=== PATIENT | female | born 1950 | race Caucasian/White ===

== ENCOUNTER 2018-07-06 03:44 | Outpatient (CLI) | payer MEDICARE, BC, SELFPAY ==
[2018-07-06 10:50] LABS: Cholesterol 164 mg/dL (50-200); HDL Cholesterol 62 mg/dL (40-60); LDL CHOLESTEROL 91 mg/dL (<100); Triglyceride 79 mg/dL (30-150)
[2018-07-06 12:15] LABS: FREE T4 0.88 ng/dL (0.76-1.46); TSH 0.58 uIU/mL (0.358-3.74)
[2018-07-08 05:26] LABS: Hemoglobin A1C 6.7 % (4.5-6.2)
== END 2018-07-06 04:04 ==
PROVIDERS: PCP Nurse Practitioner Family; Visit Provider Nurse Practitioner Family
DX: E03.9 Hypothyroidism, unspecified (principal); E11.9 Type 2 diabetes mellitus without complications
CPT/HCPCS: 36415; 80061; 83721; 83036; 84439; 84443

== ENCOUNTER 2019-01-08 06:55 | Outpatient (CLI) | payer MEDICARE, BC, SELFPAY ==
[2019-01-08 09:12] LABS: Hemoglobin A1C 6.9 % (4.5-6.2)
[2019-01-08 09:19] LABS: ALT 28 U/L (12-78); AST 21 U/L (15-37); Albumin 3.7 g/dL (3.4-5.0); Alkaline Phosphatase 81 U/L (46-116); Anion Gap 7.9 mmol/L (3-11); BUN 23 mg/dL (7-18); Bilirubin, Total 0.2 mg/dL (0.2-1.0); CO2 30.1 mmol/L (21.0-32.0); CREATININE 1.24 mg/dL (0.55-1.02); Calcium 8.7 mg/dL (8.5-10.1); Chloride 103 mmol/L (98-107); Cholesterol 189 mg/dL (50-200); Estimated GFR 43.15 (mL/min/1.73m2); Glucose 127 mg/dL (70-100); HDL Cholesterol 56 mg/dL (40-60); LDL CHOLESTEROL 110 mg/dL (<100); Potassium 4.8 mmol/L (3.5-5.1); Sodium 141 mmol/L (136-145); TSH 1.31 uIU/mL (0.358-3.74); Total Protein 6.8 g/dL (6.4-8.2); Triglyceride 103 mg/dL (30-150)
== END 2019-01-08 07:15 ==
PROVIDERS: PCP Nurse Practitioner Family; Visit Provider Nurse Practitioner Family
DX: E11.9 Type 2 diabetes mellitus without complications (principal); E03.9 Hypothyroidism, unspecified; E78.5 Hyperlipidemia, unspecified
CPT/HCPCS: 36415; 80053; 80061; 83721; 83036; 84439; 84443

== ENCOUNTER 2019-01-21 00:30 | Outpatient (CLI) | payer MEDICARE, BC, SELFPAY ==
--- NOTE | 2019-01-21 14:03 | DI.RAD_ITS ---
SYMPTOMS/DIAGNOSIS: POSTMENOPAUSAL, Z78.0 DEXA SCAN: DEXA scan was performed according to the usual protocol. Findings for lumbar spine scanning are a T score of -0.7, previous examination of August 2004 showed a lumbar T score of -0.8. Left hip scanning shows a T score of -0.6, previous examination of 2003 showed left hip T score of -0.4. Left femoral neck T score is -0.9 today. Left forearm scanning shows a T score of -1.1. CONCLUSION: Findings consistent with osteopenia according to the WHO criteria. The lateral vertebral scanogram shows no evidence of a vertebral compression fracture.
--- NOTE | 2019-01-21 15:15 | DI.MAMMO_ITS ---
SYMPTOM/DIAGNOSIS: SCREENING, Z12.31 MAMMOGRAMS: Mammograms were interpreted according to the usual protocol including computer analysis with CAD system, tomosynthesis and C view imaging. The breasts are of moderate density with fairly symmetrical distribution of fibroglandular tissue. No dominant mass or clumped microcalcification is identified in either breast. The current examination is compared with the previous examinations including 10/2016 and there has been no interval change in appearance in comparison with the previous studies. CONCLUSION: No specific evidence of malignancy at this time. Routine screening examinations are suggested at yearly intervals in this age group according to the ACS/ACR guidelines. Category 1. Breast density, Category B. MQSA ASSESSMENT OF FINDINGS: Negative. Category 1. Patient will receive a letter notifying them of these results. BI-RADS category B. There are scattered areas of fibroglandular density.
== END 2019-01-21 00:50 ==
PROVIDERS: PCP Nurse Practitioner Family; Visit Provider Nurse Practitioner Family
DX: Z12.31 Encounter for screening mammogram for malignant neoplasm of breast (principal); M85.88 Other specified disorders of bone density and structure, other site; Z78.0 Asymptomatic menopausal state
CPT/HCPCS: 77063; 77067; 77080

== ENCOUNTER 2019-07-05 18:42 | Emergency (ER) | payer MEDICARE, BC, SELFPAY ==
[2019-07-05 18:47] VITALS: BP 137/61; PULSE 65; RESP 16; TEMP 36.7; O2SAT 99
[2019-07-05 19:06] LABS: Bilirubin Negative (Negative); Blood Negative (Negative); Clarity Sl Cloudy (Clear); Glucose Negative (Negative); Ketones Trace mg/dL (Negative); Leukocyte Esterase Large (Negative); Nitrite Negative (Negative); Urobilinogen 0.2 EU/dL (Up TO 0.2)
[2019-07-05 19:15] LABS: Epithelial Cells Many HPF (Negative); WBC 20-50 HPF (0-5)
[2019-07-05 19:16] LABS: Bacteria Moderate HPF (Negative); C & S Indicated? Yes; Casts 10-20 Hyaline LPF (Negative); Crystals Negative HPF (Negative); Mucus Negative (Negative); Other Cells Rare Transitional (Negative)
--- NOTE | 2019-07-05 19:30 | DI.CT_ITS ---
SYMPTOM/DIAGNOSIS: ABD BLOATING, LLQ AND ABD PAIN ABDOMEN AND PELVIC CT: CT examination of the abdomen and pelvis was performed with intravenous infusion of 100 cc's of Omnipaque 350. Images obtained through the lung bases are unremarkable. Note is made of hepatomegaly and hepatic steatosis with no focal hepatic lesion seen. Spleen is unremarkable in appearance. Pancreas, gallbladder and bile ducts are unremarkable in appearance. Adrenals and kidneys are unremarkable. Abdominal aorta is of normal diameter and no major vascular abnormality is seen. No significant abdominal wall hernia is seen. No significant abdominal or pelvic adenopathy. Cecum appears to lie in the abdominal midline. Appendix is unremarkable in appearance. CARDIOVASCULAR SURGICAL TECH structures are unremarkable for age. There is wall thickening and pericolonic fat edema in the mid sigmoid colon highly suggestive of acute diverticulitis. No evidence of abscess or perforation. CONCLUSION: Findings consistent with sigmoid diverticulitis. No evidence of abscess or perforation.
[2019-07-05 19:46] LABS: Abs Immature Grans 0.02 k/cumm (0.0-0.09); Absolute Basophil Count 0.04 k/cumm (0.0-0.2); Absolute Eosinophil Count 0.37 k/cumm (0.0-0.7); Absolute Lymphocyte Count 1.72 k/cumm (1.2-3.4); Absolute Monocyte Count 0.88 k/cumm (0.11-0.7); Absolute Neutrophil Count 6.26 k/cumm (1.2-6.7); Basophils % 0.4; HCT 35.8 % (36.0-46.0); Immature Grans % 0.2; Lymphocytes % 18.5; Mean Corp. HGB Concentration 33.5 g/dL (32.0-36.0); Mean Corpuscular Hemoglobin 29.9 pg (27.0-33.0); Mean Corpuscular Volume 89.3 fL (80-95); Mean Platelet Volume 9.4 fL (8.0-11.0); Monocytes % 9.5; Neutrophils % 67.4; Platelet Count 230 x1000/uL (130-400); RBC 4.01 m/cumm (4.00-5.20); RBC Distribution Width 13.3 % (11.7-14.6); White Blood Cell Count 9.29 k/cumm (4.4-10.8)
[2019-07-05 19:57] LABS: ALT 28 U/L (14-59); AST 20 U/L (15-37); Albumin 3.7 g/dL (3.4-5.0); Alkaline Phosphatase 78 U/L (46-116); Anion Gap 8.3 mmol/L (3-11); BUN 20 mg/dL (7-18); Bilirubin, Total 0.3 mg/dL (0.2-1.0); CO2 28.7 mmol/L (21.0-32.0); CREATININE 1.38 mg/dL (0.55-1.02); Calcium 8.5 mg/dL (8.5-10.1); Chloride 102 mmol/L (98-107); Estimated GFR 38.14 (mL/min/1.73m2); Glucose 141 mg/dL (70-100); Lipase 232 U/L (73-393); Potassium 4.2 mmol/L (3.5-5.1); Sodium 139 mmol/L (136-145); Total Protein 7.6 g/dL (6.4-8.2)
[2019-07-05] MEDS: Omnipaque 350 MG/ML 100 ML BTL IJ (20:20)
[2019-07-05] MEDS: Normal Saline 1,000 ML 1000 ML IV (20:37)
--- NOTE | 2019-07-05 20:45 | ED.GENADUL_ITS ---
Discharge Plan Disposition Patient Disposition: HOME Condition: Stable Discharge Details Chief Complaint: Urinary Clinical Impression: Acute diverticulitis, Acute UTI Primary Care Provider: Adeline Lee ED Provider: Missy Gordillo Home Meds and New Rx's Prescriptions: New ciprofloxacin HCl [Cipro] 500 mg tablet 500 mg PO BID Qty: 14 RF: 0 metronidazole 500 mg tablet 500 mg PO TID Qty: 21 RF: 0 Continued trazodone 50 mg tablet 50 mg PO QHS Qty: 90 RF: 4 levothyroxine 88 mcg tablet 88 mcg PO DAILY Qty: 90 RF: 4 simvastatin 20 mg tablet 20 mg PO QPM Qty: 90 RF: 4 metformin 500 mg tablet 500 mg PO BID Qty: 180 RF: 4 lisinopril 20 mg tablet 20 mg PO DAILY Qty: 90 RF: 4 Prevnar 13 (PF) 0.5 mL syringe 0.5 ml IM ONCE Qty: 0.5 RF: 0 varicella-zoster gE-AS01B (PF) 50 mcg/0.5 mL suspension for reconstitution 0.5 ml IM ONCE Qty: 1 RF: 0 vitamin B complex 1 EACH capsule 1 ea PO twice weekly RF: 0 Restasis 1 EACH dropperette 1 ea Ophthalmic DAILY RF: 0 (DME) OneTouch Ultra Test 1 EACH strip 1 ea Miscellaneous DAILY Qty: 100 RF: 4 cetirizine 10 mg tablet 10 mg PO DAILY Qty: 90 RF: 4 famotidine 20 mg tablet 20 mg PO BID PRN (Reason: GERD) Qty: 180 RF: 4 ammonium lactate 12 % cream 1 applic TP BID Qty: 385 RF: 3 aspirin [Aspir-81] 81 MG tablet,delayed release (DR/EC) 81 mg PO DAILY RF: 0 Discharge Instructions Instructions: Diverticulitis (ED), Urinary Tract Infection in Women (ED), Diverticulitis Diet (ED) Additional Instructions: Clear liquid diet for the next 2 to 3 days. Push fluids by mouth. Be sure to stay well-hydrated. Use antibiotic as prescribed. For any joint pain or tendon pain which developed while taking these antibiotics please discontinue antibiotics and call your primary care doctor. Follow-up with your primary care doctor early next week for reevaluation. For any alarming symptoms, increase in abdominal pain, fevers worsening or alarming symptoms have immediate reevaluation in the emergency room as discussed Medical Decision Making Patient presents initially for concern of possible UTI as she has had 3 days of back pain bilaterally associated mild abdominal bloating and lower abdominal pressure. On exam patient is having notable left lower quadrant tenderness with palpation. Patient's initial urine dip does have mild leukocyte esterase. P atient's exam is not consistent with urinary tract infection therefore we discussed CAT scan evaluation which patient consents to. On CT patient does have acute sigmoid diverticulitis without any associated complication. No notable white blood cell count elevation today. I do feel this patient is appropriate for outpatient management of diverticulitis. Will treat with Cipro Flagyl which will also cover her urine concurrently. Urine culture pending. Patient encouraged clear liquid diet for 2 to 3 days in conjunction with pushing fluids by mouth and antibiotic treatment. Initial dose of antibiotics provided in the emergency room. Patient did receive IV fluid in the ER. Patient encouraged prompt follow-up with primary care doctor as an outpatient the next few days for reevaluation and return for any alarming symptoms or worsening. Precautions provided regarding complications. HPI General Date/Time Provider Initiated Documentation: 07/05/19 19:21 . HPI Narrative: Patient presents for complaints of 3 days of lower back pain bilaterally in the lower back associated with mild abdominal pressure. Patient reports mild abdominal bloating for the last 2 days mildly improved today. Patient denies any diarrhea, nausea, vomiting. Patient reports mild suprapubic pressure. Patient denies urinary urgency, frequency or dysuria or. Patient does report a mild concern of UTI she does with a history of UTI the past however her clinical presentation with UTI historically was associated with dysuria and urgency which she did denies at this time. Patient denies fever, chills. Patient has mild decrease in appetite but has had no difficulty tolerating p.o. intake. Does report a history of diverticulosis without any history of flare of diverticulitis. Patient reports no cough or recent URI. Denies difficulty breathing with shortness of breath or wheezing. No chest pain. No dizziness or weakness. Related Data Home Medications Medication Instructions Recorded Confirmed vitamin B complex 1 ea PO twice weekly 02/25/13 07/05/19 aspirin [Aspir-81] 81 mg PO DAILY 03/02/14 07/05/19 Restasis 1 ea OPHTHALMIC DAILY script 02/03/16 07/05/19 [employer] Ultra Test #100 strip 10/10/17 01/15/19 cetirizine 10 mg tablet 10 mg PO DAILY #90 tab 09/04/18 07/05/19 famotidine 20 mg tablet 20 mg PO BID PRN #180 tab 09/20/18 07/05/19 levothyroxine 88 mcg tablet 88 mcg PO DAILY #90 tab 01/15/19 07/05/19 lisinopril 20 mg tablet 20 mg PO DAILY #90 tab 01/15/19 07/05/19 metformin 500 mg tablet 500 mg PO BID #180 tab 01/15/19 07/05/19 pneumoc 13-mack conj-dip cr(PF) 0.5 0.5 ml IM ONCE #0.5 ml 01/15/19 07/05/19 mL IM syringe simvastatin 20 mg tablet 20 mg PO QPM #90 tab 01/15/19 07/05/19 trazodone 50 mg tablet 50 mg PO QHS #90 tab 01/15/19 07/05/19 varicella-zoster gE-AS01B (PF) 50 0.5 ml IM ONCE #1 each 01/15/19 07/05/19 mcg/0.5 mL IM susp, kit ammonium lactate 12 % topical cream 1 applic TP BID #385 gm 01/22/19 07/05/19 ciprofloxacin HCl [Cipro] 500 mg PO BID #14 tab 07/05/19 metronidazole 500 mg PO TID #21 tab 07/05/19 Previous Rx's Medication Instructions Recorded OneTouch Ultra Test #100 strip 10/10/17 cetirizine 10 mg tablet 10 mg PO DAILY #90 tab 09/04/18 famotidine 20 mg tablet 20 mg PO BID PRN #180 tab 09/20/18 levothyroxine 88 mcg tablet 88 mcg PO DAILY #90 tab 01/15/19 lisinopril 20 mg tablet 20 mg PO DAILY #90 tab 01/15/19 metformin 500 mg tablet 500 mg PO BID #180 tab 01/15/19 pneumoc 13-mack conj-dip cr(PF) 0.5 0.5 ml IM ONCE #0.5 ml 01/15/19 mL IM syringe simvastatin 20 mg tablet 20 mg PO QPM #90 tab 01/15/19 trazodone 50 mg tablet 50 mg PO QHS #90 tab 01/15/19 varicella-zoster gE-AS01B (PF) 50 0.5 ml IM ONCE #1 each 01/15/19 mcg/0.5 mL IM susp, kit ammonium lactate 12 % topical cream 1 applic TP BID #385 gm 01/22/19 ciprofloxacin HCl [Cipro] 500 mg PO BID #14 tab 07/05/19 metronidazole 500 mg PO TID #21 tab 07/05/19 Allergies Allergy/AdvReac Type Severity Reaction Status Date / Time amoxicillin Allergy Severe Hives Unverified 01/15/19 10:07 blueberry Allergy Intermediate SWELLING Unverified 01/15/19 10:07 General Stated Complaint: Urinary SIRIA: 4 Review of Systems Review of Systems CONSTITUTIONAL: The patient denies fevers, chills. EYES: Denies vision changes, blurry vision, or eye pain. ENT: Denies hearing changes, tinnitus, vertigo, sore throat. CARDIAC: Denies chest pain, SOB. RESPIRATORY: Denies cough, sputum. Denies difficulty breathing. GASTROINTESTINAL: Denies abdominal pain, changes in bowel, vomiting or nausea. Mild bloating. GENITOURINARY: Denies dysuria, or frequency of urination. MUSCULOSKELETAL: Denies Joint pain, gait changes. NEUROLOGIC: Denies headaches, Denies focal weakness. Denies numbness. INTEGUMENT: Denies rashes. PSYCHIATRIC: Denies behavior changes. Denies anxiety or depression. ENDOCRINOLOGY: Denies fatigue. PSYCHIATRY: Denies depression, agitation or anxiety [facility] [place] Medical History (Updated 02/04/19 @ 21:16 by Adeline Lee NP) Carpal tunnel syndrome, bilateral (Inactive) CKD (chronic kidney disease) (Chronic) Depressive disorder (Resolved) Diabetic retinopathy (Chronic ~08/26/18) Essential hypertension (Chronic 12/02/13) Hyperlipidemia (Chronic 06/24/12) Hypothyroidism (Chronic 06/24/12) Insomnia (Chronic) Osteopenia (Chronic ~12/2018) Sigmoid diverticulosis (Inactive) Type 2 diabetes mellitus (Chronic) Surgical History (Updated 03/19/19 @ 15:30 by Adeline Lee NP) History of carpal tunnel surgery of left wrist (Inactive 02/11/19) History of carpal tunnel surgery of right wrist (Inactive 12/31/18) S/P trigger finger release (Inactive 12/31/18) Of right middle and index finger 12/31/18 Of left middle and index finger 02/11/19 Social History (Updated 01/15/19 @ 14:56 by Meño Vargas) Smoking/Tobacco Use Status: Never Second Hand Exposure: Yes Alcohol Intake: current Alcohol Intake frequency: 0-2 drinks per day Alcohol type: wine Drug use: Never Substance use type: does not use Household members: significant other Housing: house Communication Needs: None Pets and animals: Yes Pets and animals: dog(s) Sexually active: No Current gender identity: decline to answer What is your relationship status?: How often do you talk on the phone with friends or family?: decline to answer How often do you get together with friends or relatives?: decline to answer How often do you attend mormonism or mandaen services?: decline to answer Do you belong to any clubs or organized social groups?: decline to answer Panel score (0-1 are the most socially isolated patients): 1 What type of physical activity do you participate in: decline to answer Duration: < 15 minutes/day Frequency: daily Holly/Hoahaoism: Yazdanism Special holly needs: No Seatbelt use: always Do you feel safe at home: Yes Do you feel safe in your relationship?: Yes Female Reproductive History Menstrual Menopause type: natural History History 2 Para 2 Hx # Term Pregnancies Multiple births Hx # Pregnancies Ectopic pregnancies AB induced Hx Number of Living Children 2 AB spontaneous Exam Narrative Exam Narrative: CONST: Healthy appearing patient, in no acute distress. Well hydrated. Alert and alert. HENMT: Head nomocephalic, normal to inspection. Atraumatic. Hearing grossly normal. EYES: General normal appearance. Alignment normal. Eyelids normal. Conjunctiva normal. NECK: Normal visual inspection. FROM. Trachea midline. No Midline tenderness. CHEST: Normal insepection of the chest. RESP: Normal respiratory effort. Speaking full sentences. No cough. No audible wheezing. No retractions. CARDIO: No JVD. Abdomen: Patient with mild left lower quadrant tenderness with palpation. No rebound or guarding. Bowel sounds present in all 4 quadrants. MUSCULOSKELETAL: Normal Gait. FROM of all extremities. No bony pain with palpation to lower back. No CVA tenderness. SKIN: Normal. Dry. No rashes. NEURO: Alert and awake. Speech clear. PSYCH: Normal affect. Cooperative. Course Vital Signs Temperature 36.7 C 07/05/19 18:47 Pulse 65 07/05/19 18:47 Respiratory Rate 16 07/05/19 18:47 Blood Pressure 137/61 07/05/19 18:47 Pulse Oximetry 99 07/05/19 18:47 Temperature 36.7 C 07/05/19 18:47 Temperature Source Temporal Artery Scan 07/05/19 18:47 Pulse 65 07/05/19 18:47 Respiratory Rate 16 07/05/19 18:47 Respiratory Effort 07/05/19 18:47 Blood Pressure 137/61 07/05/19 18:47 Pulse Oximetry 99 07/05/19 18:47 Pain Level 2 07/05/19 18:54 Lab/Test Results Lab/Test Results: 07/05/19 19:00 Urine - Reflex from Ua Urine Culture - Pending Laboratory Tests Range/Units 07/05/19 07/05/19 07/05/19 19:00 19:35 19:35 WBC (4.4-10.8) k/cumm 9.29 RBC (4.00-5.20) m/cumm 4.01 Hgb (12.0-15.5) g/dL 12.0 Hct (36.0-46.0) % 35.8 L MCV (80-95) fL 89.3 MCH (27.0-33.0) pg 29.9 MCHC (32.0-36.0) g/dL 33.5 RDW (11.7-14.6) % 13.3 Plt Count (130-400) x1000/uL 230 MPV (8.0-11.0) fL 9.4 Immature Gran % 0.2 Neutrophils % 67.4 Lymphocytes % 18.5 Monocytes % 9.5 Eosinophils % 4.0 Basophils % 0.4 Absolute Neutrophils (1.2-6.7) k/cumm 6.26 Absolute Lymphocytes (1.2-3.4) k/cumm 1.72 Absolute Monocytes (0.11-0.7) k/cumm 0.88 H Absolute Eosinophils (0.0-0.7) k/cumm 0.37 Absolute Basophils (0.0-0.2) k/cumm 0.04 Sodium (136-145) mmol/L 139 Potassium (3.5-5.1) mmol/L 4.2 Chloride (98-107) mmol/L 102 Carbon Dioxide (21.0-32.0) mmol/L 28.7 Anion Gap (3-11) mmol/L 8.3 BUN (7-18) mg/dL 20 H Creatinine (0.55-1.02) mg/dL 1.38 H Estimated GFR/1.73 m2 (mL/min/1.73m2) 38.14 Glucose (70-100) mg/dL 141 H Calcium (8.5-10.1) mg/dL 8.5 Total Bilirubin (0.2-1.0) mg/dL 0.3 AST (15-37) U/L 20 ALT (14-59) U/L 28 Alkaline Phosphatase (46-116) U/L 78 Total Protein (6.4-8.2) g/dL 7.6 Albumin (3.4-5.0) g/dL 3.7 Lipase (73-393) U/L 232 Urine Color (Yellow) Yellow Urine Clarity (Clear) Sl cloudy Urine pH (5-8) 6.0 Ur Specific [place] (1.005-1.025) 1.020 Urine Protein (Negative) mg/dL Trace H Urine Ketones (Negative) mg/dL Trace H Urine Blood (Negative) Negative Urine Nitrite (Negative) Negative Urine Bilirubin (Negative) Negative Urine Urobilinogen (Up TO 0.2) EU/dL 0.2 Ur Leukocyte Esterase (Negative) Large H Urine RBC (0-2) 3-5 H Urine WBC (0-5) HPF 20-50 Ur Epithelial Cells (Negative) HPF Many Urine Crystals (Negative) HPF Negative Urine Bacteria (Negative) HPF Moderate Urine Casts (Negative) LPF 10-20 hyaline Urine Mucus (Negative) Negative Urine Other (Negative) Rare transitional Ur Culture Indicated? Yes Urine Glucose (Negative) mg/dL Negative
--- NOTE | 2019-07-05 20:58 | DI.VRAD_ITS ---
EXAM: CT Abdomen and Pelvis With Contrast EXAM DATE/TIME: 07/05/2019 8:06 PM CLINICAL HISTORY: 68 years old, female; Abdominal pain; Localized; Left lower quadrant (llq); Patient HX: Abd bloating, llq pain, back pain TECHNIQUE: Imaging protocol: Computed tomography of the abdomen and pelvis with intravenous contrast. COMPARISON: No relevant prior studies available. FINDINGS: Lungs: Subsegmental atelectasis/scarring anterior right lung base. Liver: There is a diffuse decrease in hepatic parenchymal density, consistent with moderate fatty infiltration.No mass. Gallbladder and bile ducts: Normal. No calcified stones. No ductal dilation. Pancreas: Normal. No ductal dilation. Spleen: Normal. No splenomegaly. Adrenals: Normal. No mass. Kidneys and ureters: There is mild perinephric stranding. Simple cyst right kidney. No hydronephrosis. Stomach and bowel: There is no evidence of intestinal perforation or obstruction. Colonic diverticula. Pericolonic stranding of fat about distal sigmoid colon, series 4, image 77. Appendix: No evidence of appendicitis. Intraperitoneal space: Unremarkable. No free air. No significant fluid collection. Vasculature: Unremarkable. No abdominal aortic aneurysm. Lymph nodes: Unremarkable. No enlarged lymph nodes. Bladder: Unremarkable as visualized. Reproductive: Unremarkable as visualized. Bones/joints: Mild convex-right scoliosis of thoracolumbar spine. The spine demonstrates moderate degenerative changes at multiple levels. Soft tissues: Unremarkable. IMPRESSION: 1. Acute sigmoid colonic diverticulitis. 2. Perinephric fat stranding which could have multiple possible etiologies. Dictated and Authenticated by: Miguel Angel Carter MD. Ordering:DIMAS Louis MD
[2019-07-05] MEDS: metroNIDAZOLE 500 MG TAB PO (21:34)
[2019-07-05] MEDS: Ciprofloxacin 500 MG TAB PO (21:35)
== END 2019-07-05 21:45 | disposition home or self-care (01) ==
PROVIDERS: Emergency Provider Physician Assistant; PCP Nurse Practitioner Family
DX: K57.30 Diverticulosis of large intestine without perforation or abscess without bleeding (principal); N39.0 Urinary tract infection, site not specified
CPT/HCPCS: 36415; 80053; 83690; 96360; 99285; 74177; 81003; 81015; 85025; 87086; 99284; J3490

== ENCOUNTER 2019-07-17 10:08 | Outpatient (CLI) | payer MEDICARE, BC, SELFPAY ==
[2019-07-17 13:43] LABS: Hemoglobin A1C 6.8 % (4.5-6.2)
[2019-07-17 13:47] LABS: Anion Gap 8.4 mmol/L (3-11); BUN 22 mg/dL (7-18); CO2 26.6 mmol/L (21.0-32.0); COMMENT (LAB VIEW ONLY) 91.16 mg/dL; CREATININE 1.13 mg/dL (0.55-1.02); Calcium 8.5 mg/dL (8.5-10.1); Chloride 105 mmol/L (98-107); Estimated GFR 48.03 (mL/min/1.73m2); Glucose 76 mg/dL (70-100); Microalb ug/mg Crea 5.7 ug/mg Cr; Potassium 4.9 mmol/L (3.5-5.1); Sodium 140 mmol/L (136-145)
[2019-07-17 13:55] LABS: Bilirubin Negative (Negative); Blood Negative (Negative); Clarity Sl Cloudy (Clear); Glucose Negative (Negative); Ketones Negative (Negative); Leukocyte Esterase Small (Negative); Nitrite Negative (Negative); Urobilinogen 0.2 EU/dL (Up TO 0.2); pH 5.5 (5-8)
[2019-07-17 14:53] LABS: Epithelial Cells Few HPF (Negative); RBC 0-2 (0-2); WBC 0-2 HPF (0-5)
[2019-07-17 14:54] LABS: Bacteria Few HPF (Negative); C & S Indicated? Yes; Casts 0-2 Coarse Granular LPF (Negative); Crystals Moderate Amorphous HPF (Negative); Mucus Negative (Negative); Other Cells Rare Renal (Negative)
== END 2019-07-17 10:28 ==
PROVIDERS: PCP Nurse Practitioner Family; Visit Provider Nurse Practitioner Family
DX: N18.9 Chronic kidney disease, unspecified (principal); E11.9 Type 2 diabetes mellitus without complications; R82.90 Unspecified abnormal findings in urine
CPT/HCPCS: 36415; 80048; 81003; 81015; 82043; 82570; 83036; 87086

== ENCOUNTER 2020-01-05 01:46 | Outpatient (CLI) | payer MEDICARE, BC, SELFPAY ==
[2020-01-05 07:34] LABS: Hemoglobin A1C 6.6 % (3.8-5.6)
[2020-01-05 08:39] LABS: ALT 29 U/L (14-59); AST 24 U/L (15-37); Albumin 3.6 g/dL (3.4-5.0); Alkaline Phosphatase 77 U/L (46-116); Anion Gap 7.2 mmol/L (3-11); BUN 18 mg/dL (7-18); Bilirubin, Total 0.2 mg/dL (0.2-1.0); CO2 30.8 mmol/L (21.0-32.0); CREATININE 1.06 mg/dL (0.55-1.02); Calcium 8.6 mg/dL (8.5-10.1); Calculated LDL 101 mg/dL (<100); Chloride 103 mmol/L (98-107); Cholesterol 180 mg/dL (<200); Estimated GFR 51.55 (mL/min/1.73m2); Glucose 114 mg/dL (74-106); HDL Cholesterol 59 mg/dL (40-60); Potassium 4.4 mmol/L (3.5-5.1); Sodium 141 mmol/L (136-145); TSH 0.56 uIU/mL (0.36-3.74); Total Protein 6.5 g/dL (6.4-8.2); Triglyceride 103 mg/dL (<150)
[2020-01-05 09:01] LABS: FREE T4 0.86 ng/dL (0.76-1.46)
== END 2020-01-05 02:06 ==
PROVIDERS: PCP Nurse Practitioner Family; Visit Provider Nurse Practitioner Family
DX: I10 Essential (primary) hypertension (principal); E11.319 Type 2 diabetes mellitus with unspecified diabetic retinopathy without macular edema; Z13.6 Encounter for screening for cardiovascular disorders
CPT/HCPCS: 36415; 80053; 80061; 83036; 84439; 84443

== ENCOUNTER 2020-05-25 01:28 | Outpatient (CLI) | payer MEDICARE, BC, SELFPAY ==
--- NOTE | 2020-05-25 08:45 | DI.MAMMO_ITS ---
EXAM: MAMMO SCREENING CLINICAL HISTORY: screening,z12.39 TECHNIQUE: Mammograms were interpreted according to the usual protocol including computer analysis w ith CAD system, tomosynthesis and C-view imaging. COMPARISON: 2010 through 2018 FINDINGS: The breasts are composed of scattered fibroglandular densities, Breast Density category B. No suspicious masses or suspicious microcalcifications are seen. Vascular calcifications are noted. No skin thickening or abnormal axillary lymph nodes are seen. There has been no significant change from prior exams. IMPRESSION: BI-RADS Category 1, negative mammogram. Yearly screening mammography is recommended. Breast Density Category B, scattered fibroglandular densities.
== END 2020-05-25 01:48 ==
PROVIDERS: PCP Nurse Practitioner Family; Visit Provider Nurse Practitioner Family
DX: Z12.31 Encounter for screening mammogram for malignant neoplasm of breast (principal); R92.2 Inconclusive mammogram
CPT/HCPCS: 77063; 77067

== ENCOUNTER 2020-05-27 13:15 | Outpatient (REF) | payer MEDICARE, BC, SELFPAY ==
[2020-05-27 13:51] LABS: Hemoglobin A1C 6.6 % (3.8-5.6)
[2020-05-27 13:58] LABS: Anion Gap 9.2 mmol/L (3-11); BUN 22 mg/dL (7-18); CO2 26.8 mmol/L (21.0-32.0); CREATININE 1.21 mg/dL (0.55-1.02); Chloride 103 mmol/L (98-107); Estimated GFR 44.25 (mL/min/1.73m2); FREE T4 0.91 ng/dL (0.76-1.46); Glucose 129 mg/dL (74-106); Potassium 4.5 mmol/L (3.5-5.1); Sodium 139 mmol/L (136-145)
[2020-05-27 14:11] LABS: Vitamin D 25 Total 70.1 ng/ml (30-100)
== END 2020-05-27 13:35 ==
LOC: LBN 13:15
PROVIDERS: PCP Nurse Practitioner Family; Visit Provider Nurse Practitioner Family
DX: E11.9 Type 2 diabetes mellitus without complications (principal); M85.80 Other specified disorders of bone density and structure, unspecified site; E03.9 Hypothyroidism, unspecified
CPT/HCPCS: 80048; 82306; 83036; 84439; 84443

== ENCOUNTER 2020-11-23 09:17 | Outpatient (CLI) | payer MEDICARE, BC, SELFPAY ==
[2020-11-24 18:35] LABS: COVID-19 RT-PCR UVMMC Result Negative (Negative)
== END 2020-11-23 09:37 ==
PROVIDERS: PCP Nurse Practitioner Family; Visit Provider Nurse Practitioner Family
DX: Z20.822 Contact with and (suspected) exposure to COVID-19 (principal)
CPT/HCPCS: U0003

== ENCOUNTER 2021-01-10 12:39 | Observation (INO) | payer MEDICARE, BC, SELFPAY ==
[2021-01-10] VITALS (34 sets, daily range): BP systolic 90–157; BP diastolic 42–84; PULSE 54–98; RESP 13–21; TEMP 36–37.4; O2SAT 91–99
[2021-01-10] MEDS: diphenhydrAMINE 50 MG/ML VIAL 25 MG IVP (13:09)
[2021-01-10] MEDS: methylPREDNISolone SUCC 125 MG VIAL IVP (13:11)
[2021-01-10] MEDS: FAMOTIDINE 20 MG/50 ML BAG 200 MG IVPB (13:13)
--- NOTE | 2021-01-10 13:15 | ED.GENADUL_ITS ---
Discharge Plan Disposition Condition: Improving Discharge Details Chief Complaint: Allergic Admit Date/Time: 01/10/21 14:48 Admit Provider: Dayo Brian Attending Provider: Dayo Brian Primary Care Provider: Adeline Lee ED Provider: Dianna Clarke Discharge Instructions Activity:: Activity as Tolerated Equipment/Supplies:: No Equipment Needed Diet:: As Tolerated Discharge Data Discharge Date/Time-TO BE ENTERED AT DEPARTURE: 01/10/21 16:32 Medical Decision Making Angella Braun is a 70 y/o woman who presented to the emergency department with tongue swelling after 1st dose COVID vaccine; received IM epi and 25mg benadryl at vaccine site. On exam Pt with mild tongue edema, no impending airway compromise. Concern for likely vaccine reaction vs less likely non-allergic angiedema. Exam/hx at this time not c/w airway obstruction, infectious pathology. Plan for IV benadryl, solumedrol, pepcid, telemetry, IV placement, IVF. Will monitor. Pt reported some worsening of tongue swelling. Tongue swelling persistent on exam, increasing edema not appreciated. Plan for repeat IM epi. Pt reports no change after epi. Plan for admission for observation. I requested CRNAs evaluate Pt for preperation in case of worsening once admitted. SPECIAL DUTY NURSE at Pt evaluated, Pt admitted to medicine. Clinical Impression: tongue swelling Disposition: [facility] inpt Medical Records Medical records reviewed: Yes I reviewed the patient's medical records. Lab Data Lab results reviewed: Yes I reviewed the patient's lab results. HPI General Mode of arrival: EMS . Date/Time Provider Initiated Documentation: 01/10/21 12:52 . Limitations to Documentation: no limitations . Information obtained by: patient, RN notes reviewed and old records reviewed . HPI Narrative: Angella Braun is a 70-year-old woman with a history of chronic kidney disease, diabetes, hypertension, hyperlipidemia presenting to emergency department with tongue swelling. Just prior to arrival patient received her first dose Covid vaccine at [facility]. Patient states that approximately 10 minutes after receiving the injection while she was being observed at the pharmacy she started to develop tongue swelling. Patient was given 25 mg of Benadryl initially, had no improvement but no worsening, and was then given IM epinephrine. Patient reports that tongue swelling has improved somewhat but is still not at baseline. She denies any changes in her voice, any difficulty breathing or shortness of breath, any tightness in her throat, any difficulty swallowing. Patient reports that she was previously well in her usual state of health prior to injection. She denies any pain, fevers, vomiting, numbness, weakness, rash, itching. She denies allergies, states that she has never had a similar reaction in the past. Related Data Home Medications Medication Instructions Recorded Confirmed vitamin B complex 1 ea PO twice weekly 02/25/13 01/10/21 aspirin [Aspir-81] 81 mg PO DAILY 03/02/14 01/10/21 Restasis 1 ea OPHTHALMIC DAILY script 02/03/16 01/10/21 calcium 600 mg-D3 800 unit-mag11 1 tab PO DAILY 07/09/19 01/10/21 50 jj-irte-vmqtqe-pamela-s.borat tablet blood-glucose meter #1 each 11/27/19 09/17/20 ibuprofen 600 mg tablet 600 mg PO HS PRN PRN #90 tab 11/27/19 01/10/21 famotidine 20 mg tablet 20 mg PO QHS PRN #90 tab 01/01/20 01/10/21 levothyroxine 88 mcg tablet 88 mcg PO DAILY #90 tab 02/11/20 01/10/21 lisinopril 20 mg tablet 20 mg PO DAILY #90 tab 02/11/20 01/10/21 metformin 500 mg tablet 500 mg PO BID #180 tab 02/11/20 01/10/21 simvastatin 20 mg tablet 20 mg PO QPM #90 tab 02/11/20 01/10/21 trazodone 50 mg tablet 25 mg PO QHS #45 tab 05/27/20 01/10/21 varicella-zoster glycoE vacc-AS01B 0.5 ml IM ONCE #1 each 05/27/20 01/10/21 adj(PF) 50 mcg/0.5 mL IM susp, kit ammonium lactate 12 % topical cream 1 applic TP BID PRN #385 gm 08/11/20 01/10/21 citalopram 10 mg tablet 10 mg PO DAILY #90 tab 09/17/20 01/10/21 blood sugar diagnostic #200 ea 11/08/20 lancets #200 each 11/08/20 cetirizine 10 mg tablet 10 mg PO DAILY #90 tab 02/18/21 03/15/21 diphenhydramine HCl [Benadryl] 25 mg PO QID PRN #1 cap 01/11/21 epinephrine [EpiPen 2-Renard] 0.3 mg IM ONCE #1 ea 01/11/21 prednisone 40 mg PO DAILY #8 tab 01/11/21 diphenhydramine HCl 25 mg PO QID PRN #30 tab 01/13/21 Previous Rx's Medication Instructions Recorded blood-glucose meter #1 each 11/27/19 ibuprofen 600 mg tablet 600 mg PO HS PRN PRN #90 tab 11/27/19 famotidine 20 mg tablet 20 mg PO QHS PRN #90 tab 01/01/20 levothyroxine 88 mcg tablet 88 mcg PO DAILY #90 tab 02/11/20 lisinopril 20 mg tablet 20 mg PO DAILY #90 tab 02/11/20 metformin 500 mg tablet 500 mg PO BID #180 tab 02/11/20 simvastatin 20 mg tablet 20 mg PO QPM #90 tab 02/11/20 trazodone 50 mg tablet 25 mg PO QHS #45 tab 05/27/20 varicella-zoster glycoE vacc-AS01B 0.5 ml IM ONCE #1 each 05/27/20 adj(PF) 50 mcg/0.5 mL IM susp, kit ammonium lactate 12 % topical cream 1 applic TP BID PRN #385 gm 08/11/20 citalopram 10 mg tablet 10 mg PO DAILY #90 tab 09/17/20 blood sugar diagnostic #200 ea 11/08/20 lancets #200 each 11/08/20 cetirizine 10 mg tablet 10 mg PO DAILY #90 tab 12/16/20 diphenhydramine HCl [Benadryl] 25 mg PO QID PRN #1 cap 01/11/21 epinephrine [EpiPen 2-Renard] 0.3 mg IM ONCE #1 ea 01/11/21 prednisone 40 mg PO DAILY #8 tab 01/11/21 diphenhydramine HCl 25 mg PO QID PRN #30 tab 01/13/21 Allergies Allergy/AdvReac Type Severity Reaction Status Date / Time amoxicillin Allergy Severe Hives Unverified 01/10/21 12:55 blueberry Allergy Intermediate SWELLING Unverified 01/10/21 12:55 COVID-19 vaccine, mRNA-1273, Allergy angioedema Verified 03/15/21 16:48 LNP-S General Stated Complaint: Allergic SIRIA: 2 Review of Systems Narrative: Constitutional: denies fevers Eyes: denies eye pain ENT: denies ear pain, dental pain, sore throat, difficulty swallowing, drooling, reports tongue swelling Cardiovascular: denies chest pain Respiratory: denies SOB, cough GI: denies abdominal pain, vomiting, diarrhea : denies flank pain MSK: denies back pain, neck pain, arthralgias, myalgias Skin: denies rash Neuro: denies headaches, weakness [facility] Medical History (Updated 01/14/21 @ 07:18 by Adeline Lee NP) Angioedema After first dose of Moderna vaccine Carpal tunnel syndrome, bilateral CKD (chronic kidney disease) Depressive disorder Diabetic retinopathy 01/05/21 [place]; B/L MILD RETINOPATHY-KB Essential hypertension Hyperlipidemia Hypothyroidism Insomnia Osteopenia Dexa scan 01/14 Sigmoid diverticulosis Diverticulitis 2019 Type 2 diabetes mellitus Surgical History History of carpal tunnel surgery of left wrist (02/11/19) History of carpal tunnel surgery of right wrist (12/31/18) S/P trigger finger release (12/31/18) Of right middle and index finger 12/31/18 Of left middle and index finger 02/11/19 Family History Mother Type 2 diabetes mellitus Paroxysmal A-fib Hyperlipidemia Hypertension Breast cancer Father , at 75 Parkinson disease Type 2 diabetes mellitus Sister , of [place] at 63 Type 2 diabetes mellitus Kidney disease Heart disease Myocardial infarction Brother Heart disease Hyperlipidemia Type 2 diabetes mellitus Myocardial infarction Brother , at 12 d/t cardiomyopathy Heart disease Cardiomyopathy Daughter Hypertension Daughter No problems noted. Maternal Grandfather No problems noted. Maternal Grandmother , at 57 Heart disease Paternal Grandfather No problems noted. Paternal Grandmother No problems noted. Social History Smoking/Tobacco Use Status: Never Second Hand Exposure: Yes Smoking risk assessment performed?: Yes Alcohol Intake: current Alcohol Intake frequency: 0-2 drinks per day Alcohol type: wine Drug use: Never Substance use type: does not use Caregiver/Support person: No Household members: spouse Housing: house Communication Needs: None Do you need help understanding health information?: Rarely Pets and animals: Yes Pets and animals: dog(s) Sexually active: No Do you think of yourself as: straight/heterosexual Current gender identity: female and decline to answer What is your relationship status?: How often do you talk on the phone with friends or family?: three or more times per week How often do you get together with friends or relatives?: three or more times per week How often do you attend confucianism or shinto services?: 4 or more times per year Do you belong to any clubs or organized social groups?: yes Panel score (0-1 are the most socially isolated patients): 4 What type of physical activity do you participate in: decline to answer Duration: < 15 minutes/day Frequency: daily Holly/Confucianism: Synagogue Special holly needs: No Seatbelt use: always Drive intox or ride w/intox driver license technician: No Do you feel safe at home: Yes Do you feel safe in your relationship?: Yes Female Reproductive History Menstrual Menopause type: natural History History 2 Para 2 Hx # Term Pregnancies Multiple births Hx # Pregnancies Ectopic pregnancies AB induced Hx Number of Living Children 2 AB spontaneous Exam Narrative Exam Narrative: Constitutional: well and gao-gyyaj-jwvzjpdue, pleasant, conversing normally HENT: head atraumatic/normocephalic/normal inspection, mucous membranes moist, mild tongue edema, normal midline uvula, no pooling of secretions or drooling, normal voice Eyes: conjunctiva normal, sclera normal, pupils 3mm b/l Neck: no stridor, normal ROM, trachea midline Chest: normal inspection Resp: normal work of breathing, LCTAB Cardio: normal rate, normal rhythm, no murmur appreciated GI: abdomen soft, non-tender, non-distended Back: normal inspection, no rash Skin: warm, dry, normal color, no rash Neuro: alert, not altered, grossly non-focal, normal tone Ext: moving all extremities equally Psych: normal mood, normal affect, normal behavior Course Vital Signs Vital signs: Vital Signs Temperature 36.3 C L 01/10/21 12:50 Pulse 56 L 01/10/21 12:50 Respiratory Rate 16 01/10/21 12:50 Blood Pressure 142/55 H 01/10/21 12:50 Pulse Oximetry 98 03/15/21 12:50 Temperature 36.3 C L 01/10/21 12:50 Temperature Source Skin 01/10/21 12:50 Pulse 56 L 01/10/21 12:50 Respiratory Rate 16 01/10/21 12:50 Respiratory Effort Non-Labored 01/10/21 12:50 Blood Pressure 142/55 H 01/10/21 12:50 Blood Pressure Position Supine 01/10/21 12:50 Pulse Oximetry 98 01/10/21 12:50 Oxygen Delivery Method Room Air 01/10/21 12:50 Oxygen Flow Rate 0 01/10/21 12:50 Pain Level 0 01/10/21 12:50 Critical Care Time Critical Care Time Total Critical Care Time: 35 Attestation: I have spent greater than 35 min of critical care time with with this patient including frequent bedside reassessments and discussions with Pt, family, and consultants.
[2021-01-10 13:22] LABS: Abs Immature Grans 0.02 10^3/uL (0.0-0.06); Absolute Basophil Count 0.06 10^3/uL (0.0-0.2); Absolute Eosinophil Count 0.31 10^3/uL (0.0-0.7); Absolute Lymphocyte Count 1.22 10^3/uL (1.2-3.4); Absolute Monocyte Count 0.75 10^3/uL (0.1-0.8); Absolute Neutrophil Count 4.37 10^3/uL (1.2-6.7); Basophils % 0.9; Eosinophils % 4.6; HCT 34.7 % (36.0-46.0); HGB 11.4 g/dL (11.2-15.7); Immature Grans % 0.3; Lymphocytes % 18.1; MCH 29.5 pg (27.0-33.0); MCHC 32.9 % (32.0-36.0); MCV 89.7 fL (80-95); MPV 9.5 fL (8.0-11.0); Monocytes % 11.1; Nucleated RBC 0 %; Platelet Count 204 10^3/uL (130-400); RBC 3.87 10^6/uL (3.93-5.22); RDW 12.8 % (11.7-14.6); WBC 6.73 10^3/uL (4.4-10.8)
[2021-01-10 13:38] LABS: ALT 31 U/L (14-59); AST 22 U/L (15-37); Albumin 3.5 g/dL (3.4-5.0); Alkaline Phosphatase 74 U/L (46-116); Anion Gap 8.9 mmol/L (3-11); BUN 23 mg/dL (7-18); Bilirubin, Total 0.2 mg/dL (0.2-1.0); CO2 25.1 mmol/L (21.0-32.0); CREATININE 1.1 mg/dL (0.55-1.02); Calcium 9.1 mg/dL (8.5-10.1); Chloride 105 mmol/L (98-107); Estimated GFR 49.25 (mL/min/1.73m2); Glucose 102 mg/dL (74-106); Potassium 4.6 mmol/L (3.5-5.1); Sodium 139 mmol/L (136-145); Total Protein 7.3 g/dL (6.4-8.2)
[2021-01-10] MEDS: EPINEPHrine 0.3 MG KIT IM (14:14)
--- NOTE | 2021-01-10 14:28 | PDOC.ANES ---
Date of service: 01/10/21 Time of Service: 14:29 Anesthesia Note Report Anesthesia Note: Was requested to chat with Angella in regards to her current ED visit and potential for airway compromise. She just had her COVID vaccine today and developed some tongue swelling and was brought to the ED. Here she has has IM epi x 2 with minimal effect. She was found in ED bay 3, sitting up, not in apparent distress. During our discussion she responds to questions in full sentences. She states that she is not having any difficulty swallowing managing her secretions. On airway exam she is a Mal 1, removable upper and lower dentures, TMD ~2 Fb, her tongue does appear swollen, but she has plenty of room and is not at risk of immediate airway compromise. I discussed that I was meeting her now so that in the unlikely event she did require airway management we would be aware of her and be prepared. I did discuss that I am not sanitation worker hosing machinery tonight, but that I would pass on her information to the on-call anesthesia provider.
--- NOTE | 2021-01-10 17:38 | HPE_ITS ---
Date of service: 01/10/21 Time of Service: 17:38 Assessment and Plan Assessment and plan (1) Tongue swelling: Status: Acute Assessment and plan: Sensation of tongue swelling began approximately 10 minutes after receiving her first COVID-19 vaccination. In the emergency department, she received IV Benadryl, epinephrine IM, IV Pepcid, IV Solu-Medrol. She is feeling better, she denies shortness of breath, difficulty breathing, difficulty swallowing, although she does not feel that her tongue is back to baseline at this point. IV Benadryl ordered for as needed use. Continue home Pepcid and Zyrtec. (2) Type 2 diabetes mellitus: Status: Chronic Assessment and plan: Hold Metformin. Monitor blood glucose at before meals and at bedtime with aspart per sliding scale. (3) CKD (chronic kidney disease): Status: Chronic Assessment and plan: Her creatinine is better than baseline at 1.1 today. Repeat BMP tomorrow morning. (4) Hypothyroidism: Status: Chronic Assessment and plan: Continue levothyroxine. (5) Essential hypertension: Status: Chronic Assessment and plan: Her blood pressure is within an acceptable range. Continue lisinopril. (6) Insomnia: Status: Chronic Assessment and plan: Continue home trazodone. (7) DVT prophylaxis: Status: Acute Assessment and plan: Subcutaneous Lovenox. (8) Discharge planning issues: Status: Acute Assessment and plan: She is a FULL code. She is likely for discharge tomorrow. This case was discussed with Dr. Brian who is in agreement. History of Present Illness History of Present Illness Chief Complaint: tongue swelling Narrative: Angella Braun is a 70 year old female with a past medical history significant for type 2 diabetes, chronic kidney disease, diabetic retinopathy, hypothyroidism, hypertension, hyperlipidemia, depression, insomnia, osteopenia and obesity who presented to the emergency department with reports of tongue swelling today after receiving her [facility] dose of the COVID[facility]19 vaccine [facility]. She reported that approximately 10 minutes after receiving the injection, while she was being observed post vaccination, she began to develop tongue swelling. She was given 25 mg of Benadryl initially, with no improvement but no worsening. She was then given IM epinephrine. At the time of her presentation to the emergency department, she reported that the tongue swelling had improved somewhat but her tongue was not back to baseline. She denied any changes in her voice, difficulty breathing or shortness of breath, no throat tightness or difficulty swallowing. In the emergency department, she received IV Benadryl, epinephrine, Pepcid and Solu-Medrol. She is admitted to the [facility] floor for observation and monitoring. At the time of her admission, she does not feel that her tongue is back to baseline but she continues to deny difficulty breathing, swallowing or talking. She reports that a couple of years ago she had an allergic reaction to something, at which time her lips and tongue swelled. At that time, there was concern that she was allergic to blueberries. However, she has been eating blueberries since that time with no recurrence. She denies any other concerns such as pain, shortness of breath, coughing, wheezing, chest pain/pressure, palpitations, nausea, vomiting, diarrhea, edema. Her bowels and bladder functioning normally. She is encouraged to call nursing with any changes to her breathing or swelling. Review of Systems All systems reviewed & are unremarkable except as noted in HPI and below [facility] Medical History (Updated 01/10/21 @ 17:43 by Ashli Tidwell NP) Carpal tunnel syndrome, bilateral CKD (chronic kidney disease) Depressive disorder Diabetic retinopathy Essential hypertension Hyperlipidemia Hypothyroidism Insomnia Osteopenia Dexa scan 01/14 Sigmoid diverticulosis Diverticulitis 2019 Type 2 diabetes mellitus Surgical History History of carpal tunnel surgery of left wrist (02/11/19) History of carpal tunnel surgery of right wrist (12/31/18) S/P trigger finger release (12/31/18) Of right middle and index finger 12/31/18 Of left middle and index finger 02/11/19 Family History Mother Type 2 diabetes mellitus Paroxysmal A-fib Hyperlipidemia Hypertension Breast cancer Father , at 75 Parkinson disease Type 2 diabetes mellitus Sister , of [place] at 63 Type 2 diabetes mellitus Kidney disease Heart disease Myocardial infarction Brother Heart disease Hyperlipidemia Type 2 diabetes mellitus Myocardial infarction Brother , at 12 d/t cardiomyopathy Heart disease Cardiomyopathy Daughter Hypertension Daughter No problems noted. Maternal Grandfather No problems noted. Maternal Grandmother , at 57 Heart disease Paternal Grandfather No problems noted. Paternal Grandmother No problems noted. Social History Smoking/Tobacco Use Status: Never Second Hand Exposure: Yes Smoking risk assessment performed?: Yes Alcohol Intake: current Alcohol Intake frequency: 0-2 drinks per day Alcohol type: wine Drug use: Never Substance use type: does not use Caregiver/Support person: No Household members: spouse Housing: house Communication Needs: None Do you need help understanding health information?: Rarely Pets and animals: Yes Pets and animals: dog(s) Sexually active: No Do you think of yourself as: straight/heterosexual Current gender identity: female and decline to answer What is your relationship status?: How often do you talk on the phone with friends or family?: three or more times per week How often do you get together with friends or relatives?: three or more times per week How often do you attend buddhism or orthodoxy services?: 4 or more times per year Do you belong to any clubs or organized social groups?: yes Panel score (0-1 are the most socially isolated patients): 4 What type of physical activity do you participate in: decline to answer Duration: < 15 minutes/day Frequency: daily Holly/Tenriism: Hoahaoism Special holly needs: No Seatbelt use: always Drive intox or ride w/intox tractor driver teamster: No Do you feel safe at home: Yes Do you feel safe in your relationship?: Yes Female Reproductive History Menstrual Menopause type: natural History History 2 Para 2 Hx # Term Pregnancies Multiple births Hx # Pregnancies Ectopic pregnancies AB induced Hx Number of Living Children 2 AB spontaneous Meds Home Medications and Allergies Allergies Allergy/AdvReac Type Severity Reaction Status Date / Time amoxicillin Allergy Severe Hives Unverified 01/10/21 12:55 blueberry Allergy Intermediate SWELLING Unverified 01/10/21 12:55 COVID-19 vaccine, mRNA-1273, Allergy angioedema Verified 01/10/21 16:48 LNP-S Home Medications Medication Instructions Recorded Confirmed Type vitamin B complex 1 ea PO twice weekly 02/25/13 01/10/21 History aspirin [Aspir-81] 81 mg PO DAILY 03/02/14 01/10/21 History Restasis 1 ea OPHTHALMIC DAILY script 02/03/16 01/10/21 History calcium 600 mg-D3 800 unit-mag11 1 tab PO DAILY 07/09/19 01/10/21 History 50 av-ncsu-uplufw-pamela-s.borat tablet blood-glucose meter #1 each 11/27/19 09/17/20 Rx ibuprofen 600 mg tablet 600 mg PO HS PRN PRN #90 tab 11/27/19 01/10/21 Rx famotidine 20 mg tablet 20 mg PO QHS PRN #90 tab 01/01/20 01/10/21 Rx levothyroxine 88 mcg tablet 88 mcg PO DAILY #90 tab 02/11/20 01/10/21 Rx lisinopril 20 mg tablet 20 mg PO DAILY #90 tab 02/11/20 01/10/21 Rx metformin 500 mg tablet 500 mg PO BID #180 tab 02/11/20 01/10/21 Rx simvastatin 20 mg tablet 20 mg PO QPM #90 tab 02/11/20 01/10/21 Rx trazodone 50 mg tablet 25 mg PO QHS #45 tab 05/27/20 01/10/21 Rx varicella-zoster glycoE vacc-AS01B 0.5 ml IM ONCE #1 each 05/27/20 01/10/21 Rx adj(PF) 50 mcg/0.5 mL IM susp, kit ammonium lactate 12 % topical cream 1 applic TP BID PRN #385 gm 08/11/20 01/10/21 Rx citalopram 10 mg tablet 10 mg PO DAILY #90 tab 09/17/20 01/10/21 Rx blood sugar diagnostic #200 ea 11/08/20 Rx lancets #200 each 11/08/20 Rx cetirizine 10 mg tablet 10 mg PO DAILY #90 tab 12/16/20 01/10/21 Rx Exam Narrative Exam Narrative: General: Middle-age female, laying in hospital bed, appears fatigued. Answers questions appropriately, pleasant and talkative. HEENT: No periorbital edema, lips and tongue did not appear edematous on exam. Neck: Supple, no JVD. Cardiovascular: Heart has regular rate and rhythm, 2/6 murmur noted at left sternal border. Respiratory: Respirations appear even and nonlabored, lung sounds clear throughout, no wheezing. GI: +BS, soft, nondistended, nontender on palpation. Extremities: Moves all 4 extremities freely, no pitting edema. Results Labs Result diagrams: 01/10/21 13:05 01/10/21 13:05 Labs: Laboratory Results - last 24 hr 01/10/21 01/10/21 01/10/21 13:05 13:05 15:20 WBC 6.73 RBC 3.87 L Hgb 11.4 Hct 34.7 L MCV 89.7 MCH 29.5 MCHC 32.9 RDW 12.8 Plt Count 204 MPV 9.5 Immature Gran % 0.3 Neutrophils % 65.0 Lymphocytes % 18.1 Monocytes % 11.1 Eosinophils % 4.6 Basophils % 0.9 Nucleated RBC % 0 Absolute Neutrophils 4.37 Absolute Lymphocytes 1.22 Absolute Monocytes 0.75 Absolute Eosinophils 0.31 Absolute Basophils 0.06 Sodium 139 Potassium 4.6 Chloride 105 Carbon Dioxide 25.1 Anion Gap 8.9 BUN 23 H Creatinine 1.1 H Estimated GFR/1.73 m2 49.25 Glucose 102 Calcium 9.1 Total Bilirubin 0.2 AST 22 ALT 31 Alkaline Phosphatase 74 Total Protein 7.3 Albumin 3.5 COVID-19 Source Nasopharyx Last Vital Signs Temp 36.3 C L 01/10/21 12:50 Pulse 79 01/10/21 16:16 Resp 15 01/10/21 16:20 BP 128/55 L 01/10/21 16:16 Pulse Ox 93 01/10/21 16:20 COVID-19 Screening Have you, or household traveled for leisure in last 14 days?: No Had IN PERSON contact w/suspected or confirmed C-19 person: No
[2021-01-10] MEDS: Simvastatin 20 MG TAB PO (20:38)
[2021-01-10] MEDS: Normal Saline Flush 10 ML SYR IVP (20:38)
[2021-01-10] MEDS: Insulin Aspart 300 UNITS/3 ML PEN SC (21:47)
[2021-01-10] MEDS: Acetaminophen 500 MG TAB 1000 MG PO (21:48)
[2021-01-10] MEDS: traZODone 50 MG TAB 25 MG PO (21:49)
[2021-01-10] MEDS: Citalopram 10 MG TAB PO (21:49)
[2021-01-10 22:00] LABS: COVID-19 PCR Negative (Negative)
[2021-01-11 03:17] VITALS: BP 106/65; PULSE 53; RESP 20; TEMP 36.9; O2SAT 97
[2021-01-11] MEDS: Levothyroxine 88 MCG TAB PO (05:34)
[2021-01-11 07:24] LABS: Anion Gap 9.1 mmol/L (3-11); BUN 32 mg/dL (7-18); CO2 24.9 mmol/L (21.0-32.0); CREATININE 1.2 mg/dL (0.55-1.02); Calcium 8.7 mg/dL (8.5-10.1); Chloride 105 mmol/L (98-107); Estimated GFR 44.54 (mL/min/1.73m2); Glucose 116 mg/dL (74-106); Potassium 4.4 mmol/L (3.5-5.1); Sodium 139 mmol/L (136-145)
[2021-01-11 07:45] VITALS: BP 112/61; PULSE 62; RESP 17; TEMP 36.7; O2SAT 97
[2021-01-11] MEDS: Aspirin E.C. 81 MG TABEC PO (08:37)
[2021-01-11] MEDS: Cetirizine 10 MG TAB PO (08:37)
[2021-01-11] MEDS: Lisinopril 20 MG TAB PO (08:37)
[2021-01-11] MEDS: Acetaminophen 500 MG TAB 1000 MG PO ×2 (09:46→20:19)
[2021-01-11 11:07] VITALS: BP 124/65; PULSE 52; RESP 19; TEMP 36.7; O2SAT 97
--- NOTE | 2021-01-11 11:24 | CHAPLAIN ---
Angella was waiting for her discharge paperwork to be completed. We had a short visit while she waited.
--- NOTE | 2021-01-11 11:28 | DSE_ITS ---
Date of service: 01/11/21 Time of Service: 11:29 DS: Diagnosis Discharge Diagnosis (1) Tongue swelling: Status: Acute (2) Type 2 diabetes mellitus: Status: Chronic (3) CKD (chronic kidney disease): Status: Chronic (4) Hypothyroidism: Status: Chronic (5) Essential hypertension: Status: Chronic (6) Insomnia: Status: Chronic Discharge Plan Disposition Patient Disposition: HOME Condition: Improving Discharge Details Reason For Visit: TONGUE SWELLING Admit Date/Time: 01/10/21 14:48 Admit Provider: Dayo Brian Attending Provider: Dayo Brian [facility] Hospital Course: Angella Braun is a 70 year old female with a past medical history significant for type 2 diabetes, chronic kidney disease, diabetic retinopathy, hypothyroidism, hypertension, hyperlipidemia, depression, insomnia, osteopenia and obesity who presented to the emergency department with reports of tongue swelling today after receiving her first dose of the [facility]19 vaccine [facility]. She reported that approximately 10 minutes after receiving the injection, while she was being observed post vaccination, she began to develop tongue swelling. She was given 25 mg of Benadryl initially, with no improvement but no worsening. She was then given IM epinephrine. At the time of her presentation to the emergency department, she reported that the tongue swelling had improved somewhat but her tongue was not back to baseline. She denied any changes in her voice, difficulty breathing or shortness of breath, no throat tightness or difficulty swallowing. In the emergency department, she received IV Benadryl, epinephrine, Pepcid and Solu-Medrol. [facility] observation and monitoring. she has remained medically stable, with no worsening symptoms and continues to improves. she is eating and drinking and stable for discharge to home. she will be advised to continue benadryl prn and use epi pen as directed if needed. follow up outpatient with pcp, return here sooner if needed for new or worsening symptoms. discharge discussed with DR Snehal Rowe Meds and New Rx's Prescriptions: New diphenhydramine HCl [Benadryl] 25 mg capsule 25 mg PO QID PRNQty: 1 RF: 0 epinephrine [EpiPen 2-Renard] 0.3 mg/0.3 mL auto-injector 0.3 mg IM ONCE Qty: 1 RF: 0 Continued trazodone 50 mg tablet 25 mg PO QHS Qty: 45 RF: 4 varicella-zoster [id number] (PF) 50 mcg/0.5 mL suspension for reconstitution 0.5 ml IM ONCE Qty: 1 RF: 0 ibuprofen 600 mg tablet 600 mg PO HS PRN PRN (Reason: pain) Qty: 90 RF: 1 (DME) blood-glucose meter [OneTouch UltraMini] Kit See Rx Instructions .ROUTE .MEDSUPPLY Qty: 1 RF: 3 citalopram 10 mg tablet 10 mg PO DAILY Qty: 90 RF: 4 Caltrate 600-D Plus Minerals 600 mg calcium- 800 unit-50 mg tablet 1 tab PO DAILY RF: 0 vitamin B complex 1 EACH capsule 1 ea PO twice weekly RF: 0 Restasis 1 EACH dropperette 1 ea Ophthalmic DAILY RF: 0 famotidine 20 mg tablet 20 mg PO QHS PRN (Reason: heartburn) Qty: 90 RF: 4 levothyroxine 88 mcg tablet 88 mcg PO DAILY Qty: 90 RF: 4 lisinopril 20 mg tablet 20 mg PO DAILY Qty: 90 RF: 4 metformin 500 mg tablet 500 mg PO BID Qty: 180 RF: 4 simvastatin 20 mg tablet 20 mg PO QPM Qty: 90 RF: 4 ammonium lactate 12 % cream 1 applic TP BID PRN (Reason: dry skin) Qty: 385 RF: 3 (DME) OneTouch Ultra Blue Test Strip Strip 1 ea Miscellaneous DAILY Qty: 200 RF: 4 (DME) lancets [OneTouch UltraSoft Lancets] Misc See Rx Instructions .ROUTE .MEDSUPPLY Qty: 200 RF: 4 cetirizine 10 mg tablet 10 mg PO DAILY Qty: 90 RF: 4 aspirin [Aspir-81] 81 MG tablet,delayed release (DR/EC) 81 mg PO DAILY RF: 0 Discharge Instructions Instructions: Anaphylaxis (DC) Stand Alone Forms: Nursing Discharge Form Referrals: Adeline Lee NP [Primary Care Provider] - 01/21/21 9:00 am Activity:: Activity as Tolerated Equipment/Supplies:: No Equipment Needed Diet:: As Tolerated Discharge Orders Discharge Orders: Discharge Order (Routine); Ordered 01/11/21 Ordered By: Alejandrina Boyd DS: Summary Time Spent with Patient providing and/or coordinating discharge services: Less than 30 minutes Status at Discharge Functional status at discharge: independent ambulation Overall status at discharge: patient is back to baseline Mental Status: mental status grossly normal Speech and Movement: speech and movement normal Mood: congruent mood Affect: normal affect Exam Narrative Exam Narrative: General: Middle-age female, laying in hospital bed, appears fatigued. Answers questions appropriately, pleasant and talkative. HEENT: No periorbital edema, lips and tongue did not appear edematous on exam. Neck: Supple, no JVD. Cardiovascular: Heart has regular rate and rhythm, 2/6 murmur noted at left sternal border. Respiratory: Respirations appear even and nonlabored, lung sounds clear throughout, no wheezing. GI: +BS, soft, nondistended, nontender on palpation. Extremities: Moves all 4 extremities freely, no pitting edema. Psych Mental Status: mental status grossly normal Speech and Movement: speech and movement normal Mood: congruent mood Affect: normal affect DS: Data Vitals/I&O Vitals and I&O: Vital Signs Temperature 36.7 C 01/11/21 11:07 Temperature Source Tympanic 01/11/21 11:07 Pulse 52 L 01/11/21 11:07 Pulse Rhythm Regular 01/11/21 08:35 Pulse 67 01/10/21 16:20 Respiratory Rate 19 01/11/21 11:07 Respiratory Effort Non-Labored 01/11/21 08:35 Respiratory Depth Normal 01/11/21 08:35 Respiratory Pattern Normal 01/11/21 08:35 Blood Pressure 124/65 01/11/21 11:07 Blood Pressure Mean 71 01/10/21 16:16 Blood Pressure Position Supine 01/10/21 12:50 Pulse Oximetry 97 01/11/21 11:07 Oxygen Delivery Method Room Air 01/11/21 11:07 Oxygen Flow Rate 0 01/11/21 11:07 Pain Level 1 01/11/21 11:07 Intake & Output 01/10/21 01/10/21 01/11/21 11:59 23:59 11:59 Intake Total 300 / 300 720 / 720 Balance 300 / 300 720 / 720 Weight 86.2 kg Intake: IV 60 / 60 Oral 240 / 240 720 / 720 Other: Urine Color Yellow Pale Urine Appearance Clear Clear Voiding Methods Toilet Toilet # Voids 1 Data Completed and Pending Labs on day of discharge: Labs from last 24 hours 01/11/21 01/10/21 01/10/21 07:10 15:20 13:05 WBC 6.73 RBC 3.87 L Hgb 11.4 Hct 34.7 L MCV 89.7 MCH 29.5 MCHC 32.9 RDW 12.8 Plt Count 204 MPV 9.5 Immature Gran % 0.3 Neutrophils % 65.0 Lymphocytes % 18.1 Monocytes % 11.1 Eosinophils % 4.6 Basophils % 0.9 Nucleated RBC % 0 Absolute Neutrophils 4.37 Absolute Lymphocytes 1.22 Absolute Monocytes 0.75 Absolute Eosinophils 0.31 Absolute Basophils 0.06 Sodium 139 Potassium 4.4 Chloride 105 Carbon Dioxide 24.9 Anion Gap 9.1 BUN 32 H D Creatinine 1.2 H Estimated GFR/1.73 m2 44.54 Glucose 116 H Calcium 8.7 Total Bilirubin AST ALT Alkaline Phosphatase Total Protein Albumin COVID-19 Source Nasopharyx SARS-CoV-2 (PCR) Negative 01/10/21 13:05 WBC RBC Hgb Hct MCV MCH MCHC RDW Plt Count MPV Immature Gran % Neutrophils % Lymphocytes % Monocytes % Eosinophils % Basophils % Nucleated RBC % Absolute Neutrophils Absolute Lymphocytes Absolute Monocytes Absolute Eosinophils Absolute Basophils Sodium 139 Potassium 4.6 Chloride 105 Carbon Dioxide 25.1 Anion Gap 8.9 BUN 23 H Creatinine 1.1 H Estimated GFR/1.73 m2 49.25 Glucose 102 Calcium 9.1 Total Bilirubin 0.2 AST 22 ALT 31 Alkaline Phosphatase 74 Total Protein 7.3 Albumin 3.5 COVID-19 Source SARS-CoV-2 (PCR) [facility] Medical History (Updated 01/10/21 @ 17:43 by Ashli Tidwell NP) Carpal tunnel syndrome, bilateral CKD (chronic kidney disease) Depressive disorder Diabetic retinopathy Essential hypertension Hyperlipidemia Hypothyroidism Insomnia Osteopenia Dexa scan 01/14 Sigmoid diverticulosis Diverticulitis 2019 Type 2 diabetes mellitus Surgical History History of carpal tunnel surgery of left wrist (02/11/19) History of carpal tunnel surgery of right wrist (12/31/18) S/P trigger finger release (12/31/18) Of right middle and index finger 12/31/18 Of left middle and index finger 02/11/19 Family History Mother Type 2 diabetes mellitus Paroxysmal A-fib Hyperlipidemia Hypertension Breast cancer Father , at 75 Parkinson disease Type 2 diabetes mellitus Sister , of [place] at 63 Type 2 diabetes mellitus Kidney disease Heart disease Myocardial infarction Brother Heart disease Hyperlipidemia Type 2 diabetes mellitus Myocardial infarction Brother , at 12 d/t cardiomyopathy Heart disease Cardiomyopathy Daughter Hypertension Daughter No problems noted. Maternal Grandfather No problems noted. Maternal Grandmother , at 57 Heart disease Paternal Grandfather No problems noted. Paternal Grandmother No problems noted. Social History Smoking/Tobacco Use Status: Never Second Hand Exposure: Yes Smoking risk assessment performed?: Yes Alcohol Intake: current Alcohol Intake frequency: 0-2 drinks per day Alcohol type: wine Drug use: Never Substance use type: does not use Caregiver/Support person: No Household members: spouse Housing: house Communication Needs: None Do you need help understanding health information?: Rarely Pets and animals: Yes Pets and animals: dog(s) Sexually active: No Do you think of yourself as: straight/heterosexual Current gender identity: female and decline to answer What is your relationship status?: How often do you talk on the phone with friends or family?: three or more times per week How often do you get together with friends or relatives?: three or more times per week How often do you attend scientologist or pentecostal services?: 4 or more times per year Do you belong to any clubs or organized social groups?: yes Panel score (0-1 are the most socially isolated patients): 4 What type of physical activity do you participate in: decline to answer Duration: < 15 minutes/day Frequency: daily Holly/Congregational: Quaker Special holly needs: No Seatbelt use: always Drive intox or ride w/intox front end loader driver: No Do you feel safe at home: Yes Do you feel safe in your relationship?: Yes Female Reproductive History Menstrual Menopause type: natural History History 2 Para 2 Hx # Term Pregnancies Multiple births Hx # Pregnancies Ectopic pregnancies AB induced Hx Number of Living Children 2 AB spontaneous
--- NOTE | 2021-01-11 13:26 | PDOC.CMIN ---
- If Service Date Differs Date of service: 01/11/21 Time of Service: 13:26 Care Management Initial Assess REASON FOR HOSPITALIZATION:: allergic reaction PAST MEDICAL HISTORY/PAST SURGICAL HISTORY:: Medical History (Updated 01/10/21 @ 17:43 by Ashli Tidwell NP). Carpal tunnel syndrome, bilateral. CKD (chronic kidney disease). Depressive disorder. Diabetic retinopathy. Essential hypertension. Hyperlipidemia. Hypothyroidism. Insomnia. Osteopenia. Dexa scan 01/14. Sigmoid diverticulosis. Diverticulitis 2019. Type 2 diabetes mellitus. Surgical History . History of carpal tunnel surgery of left wrist (02/11/19). History of carpal tunnel surgery of right wrist (12/31/18). S/P trigger finger release (12/31/18). Of right middle and index finger 12/31/18. Of left middle and index finger 02/11/19 PREVIOUS FUNCTIONAL STATUS/SOCIAL/FAMILY SUPPORTS:: Debbie lives in a single family home in [place] with her of almost 50 years, Bobby. 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 She is independent at baseline and continues to work and drive. CURRENT FUNCTIONAL STATUS:: Debbie was sitting up in a chair when CM met with her. She was dresssed and preparing for discharge. Debbie was open and friendly and readily engaged in conversation. She shared that her has nai quite ill but that he is better now. She is anxious to return home and will transport with her . ADVANCE DIRECTIVES:: none on file Has patient been provided with info about the portal/API?: Yes Did the patient sign up for the portal?: No INSURANCE COVERAGE / FINANCIAL ISSUES:: Medicare. BS CURRENT HOME/COMMUNITY SERVICES/EQUIPMENT:: none PRIMARY CARE PHYSICIAN:: Adeline Lee POTENTIAL DISCHARGE NEEDS:: Follow up with PCP and discharge plan of care PATIENT/FAMILY EDUCATION NEEDS:: Discharge plan, limitations, follow up plan, Ask Me Three TRANSPORTATION:: via private vehicle with PLAN:: Debbie will be discharged home with no new services. She will follow up with her PCP and discharge plan of care and transport with her .
--- NOTE | 2021-01-11 13:49 | PDOC.CMDIS ---
- If Service Date Differs Date of service: 01/11/21 Time of Service: 13:49 LACE Index Scoring Tool - Questions: Length of Stay (in days): 1 Acuity (Admit via E.D.?): Yes Comorbidities: Diabetes w/o Complication, Liver or Renal Disease E.D. Visits: 1 - Answers: Total Score: 10 Risk of Readmission: High Risk Care Management Discharge Reason for Hospitalization: allergic reaction Discharge Plan: Debbie will be discharged home with no new services. She will follow up with her PCP and discharge plan of care and transport with her . Patient/Family Education Needs: Discharge plan, limitations, follow up plan, Ask Me Three
[2021-01-11 14:30] VITALS: BP 130/70; PULSE 60; RESP 18; TEMP 36.4; O2SAT 98
[2021-01-11] MEDS: diphenhydrAMINE 50 MG/ML VIAL 25 MG IVP ×2 (14:36→20:19)
[2021-01-11] MEDS: predniSONE 20 MG TAB 40 MG PO (14:37)
[2021-01-11] MEDS: Enoxaparin 40 MG/0.4 ML SYR SC (18:44)
[2021-01-11 19:42] VITALS: BP 134/73; PULSE 58; RESP 18; TEMP 36; O2SAT 96
[2021-01-11] MEDS: Simvastatin 20 MG TAB PO (20:06)
[2021-01-11] MEDS: Normal Saline Flush 10 ML SYR IVP (20:20)
[2021-01-11] MEDS: Citalopram 10 MG TAB PO (22:08)
[2021-01-11] MEDS: Famotidine 20 MG TAB PO (22:08)
[2021-01-11] MEDS: traZODone 50 MG TAB 25 MG PO (22:08)
[2021-01-11] MEDS: Insulin Aspart 300 UNITS/3 ML PEN SC (22:09)
[2021-01-11 23:23] VITALS: BP 130/70; PULSE 47; RESP 18; TEMP 36.2; O2SAT 96
[2021-01-12 03:01] VITALS: BP 128/60; PULSE 48; RESP 18; TEMP 36.6; O2SAT 98
[2021-01-12] MEDS: Levothyroxine 88 MCG TAB PO (05:08)
[2021-01-12 07:44] VITALS: BP 145/67; PULSE 51; RESP 19; TEMP 35; O2SAT 97
[2021-01-12] MEDS: Aspirin E.C. 81 MG TABEC PO (09:18)
[2021-01-12] MEDS: Cetirizine 10 MG TAB PO (09:19)
[2021-01-12] MEDS: Lisinopril 20 MG TAB PO (09:19)
[2021-01-12] MEDS: predniSONE 20 MG TAB 40 MG PO (09:19)
[2021-01-12 10:44] VITALS: BP 143/64; PULSE 52; RESP 18; TEMP 36.7; O2SAT 96
== END 2021-01-12 13:15 | disposition home or self-care (01) ==
LOC: ER 15:16 → MS 16:34
PROVIDERS: Nurse Practitioner; Admitting Provider Family Medicine; Emergency Provider Student in an Organized Health Care Education/Training Program; PCP Nurse Practitioner Family; Visit Provider Family Medicine
DX: R22.0 Localized swelling, mass and lump, head (principal); T50.Z95A Adverse effect of other vaccines and biological substances, initial encounter; N18.9 Chronic kidney disease, unspecified; E11.22 Type 2 diabetes mellitus with diabetic chronic kidney disease; E03.9 Hypothyroidism, unspecified; G47.00 Insomnia, unspecified; I12.9 Hypertensive chronic kidney disease with stage 1 through stage 4 chronic kidney disease, or unspecified chronic kidney disease; E11.319 Type 2 diabetes mellitus with unspecified diabetic retinopathy without macular edema; E78.5 Hyperlipidemia, unspecified; F32.9 Major depressive disorder, single episode, unspecified; M85.88 Other specified disorders of bone density and structure, other site; E66.9 Obesity, unspecified
CPT/HCPCS: 36415; 80048; 80053; 87635; 96365; 96372; 96375; 99217; 99222; 99291; J1650; 85025; 99219; G0378; J0171; J1200; J2930; J7512

== ENCOUNTER 2021-01-19 03:28 | Outpatient (CLI) | payer MEDICARE, BC, SELFPAY ==
[2021-01-19 12:07] LABS: Source Nasal/Nares
[2021-01-19 15:20] LABS: COVID-19 PCR Negative (Negative)
== END 2021-01-19 03:29 | disposition home or self-care (01) ==
PROVIDERS: PCP Nurse Practitioner Family; Visit Provider Family Medicine
DX: Z20.822 Contact with and (suspected) exposure to COVID-19 (principal)
CPT/HCPCS: 87635

== ENCOUNTER 2021-02-21 13:28 | Outpatient (REF) | payer MEDICARE, BC, SELFPAY ==
[2021-02-21 14:20] LABS: Hemoglobin A1C 6.9 % (<5.7)
[2021-02-21 14:26] LABS: BUN 15 mg/dL (7-18); CREATININE 1.2 mg/dL (0.55-1.02); Calcium 9.1 mg/dL (8.5-10.1); Calculated LDL 135 mg/dL (<100); Chloride 102 mmol/L (98-107); Cholesterol 234 mg/dL (<200); Estimated GFR 44.54 (mL/min/1.73m2); Glucose 152 mg/dL (74-106); HDL Cholesterol 63 mg/dL (40-60); Potassium 3.8 mmol/L (3.5-5.1); Sodium 142 mmol/L (136-145); TSH 0.51 uIU/mL (0.36-3.74); Triglyceride 184 mg/dL (<150)
[2021-02-21 14:42] LABS: FREE T4 0.99 ng/dL (0.76-1.46)
== END 2021-02-21 13:29 | disposition home or self-care (01) ==
LOC: LBN 13:28
PROVIDERS: PCP Nurse Practitioner Family; Visit Provider Nurse Practitioner Family
DX: E11.9 Type 2 diabetes mellitus without complications (principal); E03.9 Hypothyroidism, unspecified
CPT/HCPCS: 80048; 80061; 83036; 84439; 84443

== ENCOUNTER 2021-05-30 19:49 | Outpatient (REF) | payer MEDICARE, BC, SELFPAY ==
[2021-05-30 21:55] LABS: Hemoglobin A1C 7.4 % (<5.7)
== END 2021-05-30 19:50 | disposition home or self-care (01) ==
LOC: LBN 19:49
PROVIDERS: PCP Nurse Practitioner Family; Visit Provider Nurse Practitioner Family
DX: E11.9 Type 2 diabetes mellitus without complications (principal)
CPT/HCPCS: 83036

== ENCOUNTER 2021-06-17 04:04 | Outpatient (CLI) | payer MEDICARE, BC, SELFPAY ==
--- NOTE | 2021-06-17 08:30 | DI.MAMMO_ITS ---
Exam(s) MAMMO SCREENING EXAM: MAMMO SCREENING CLINICAL HISTORY: screening,z12.39 TECHNIQUE: Bilateral full field digital CC and MLO mammographic images were obtained with 3D tomosyn thesis and utilizing computer aided detection (CAD). COMPARISON: Available for comparison. FINDINGS: Masses/Architectural Distortion: None seen. Microcalcifications: No suspicious pleomorphic-type are seen. Skin Thickening/Nipple Retraction: None. IMPRESSION: 1. No significant interval change with no specific features of malignancy noted. 2. Unless there is more urgent need, screening mammography is recommended, as per [employer] guidelines. BI-RADS Category 1 - Negative Breast Density - Category B - Scattered areas of fibroglandular density Breast density category C or D implies that the patient has dense breast tissue. Dense breast tissue is very common and is not abnormal but dense breast tissue can make it harder to find cancer on a ma mmogram. Also, dense breast tissue may increase their breast cancer risk. This information about the result of the mammogram report was provided to the patient to raise their awareness. Use this report when you speak with the patient about their risks for breast cancer, which includes their family hist ory. At that time, you may recommend for more screening tests (Ultrasound or MRI) as they might be us eful based on their risk. A negative radiographic report should not delay biopsy if a dominant or clinically suspicious mass is present. Up to ten percent of cancers are not identified on mammography. A negative report may reinforce clinical impression. Adenosis and dense breasts may obscure an underlying neoplasm. False positive reports average 6 to 10%. Patient will receive a letter notifying them of these results.
== END 2021-06-17 04:24 ==
PROVIDERS: PCP Nurse Practitioner Family; Visit Provider Nurse Practitioner Family
DX: Z12.31 Encounter for screening mammogram for malignant neoplasm of breast (principal)
CPT/HCPCS: 77063; 77067

== ENCOUNTER 2021-08-11 16:01 | Outpatient (REF) | payer MEDICARE, BC, SELFPAY | END 2021-08-11 16:02 | disposition home or self-care (01) | LOC: LBN 16:01 | PROVIDERS: PCP Nurse Practitioner Family; Visit Provider Physician Assistant | DX: N39.0 Urinary tract infection, site not specified (principal) | CPT/HCPCS: 87086 ==

== ENCOUNTER 2021-09-15 16:08 | Outpatient (REF) | payer MEDICARE, BC, SELFPAY ==
[2021-09-16 11:11] LABS: COVID-19 RT-PCR UVMMC Result Negative (Negative)
== END 2021-09-15 16:09 | disposition home or self-care (01) ==
LOC: LBN 16:08
PROVIDERS: PCP Nurse Practitioner Family; Visit Provider Nurse Practitioner
DX: Z20.822 Contact with and (suspected) exposure to COVID-19 (principal); J06.9 Acute upper respiratory infection, unspecified
CPT/HCPCS: U0003; U0005

== ENCOUNTER 2021-11-22 03:01 | Outpatient (CLI) | payer MEDICARE, BC, SELFPAY ==
--- NOTE | 2021-11-22 08:02 | DI.US_ITS ---
Exam(s) US PELVIS TRANSVAGINAL EXAM: US PELVIS TRANSVAGINAL CLINICAL HISTORY: abdominal pressure,LOW ABD PAIN, R10.30. TECHNIQUE: Transabdominal and transvaginal pelvic ultrasound was performed using standard protocol. COMPARISON: CT CT ABDOMEN PELVIS WO from 07/05/2019 FINDINGS: KIDNEYS: Kidneys are symmetric in size. No evidence of renal calculi. No evidence of hydronephrosis. No renal mass or cyst identified. Note is made of fatty infiltration of the liver. UTERUS: Position: Anteverted. Size: 6 long by 2.6 AP by 3.2 transverse cm Endometrium: 0.4 cm. Normal for patient's menstrual status. Myometrium: Unremarkable. Cervix: Unremarkable. OVARIES: The right ovary was not visualized transabdominally or transvaginally. No right adnexal mas s is seen. Left: 1.3 x 0.7 x 1.2 cm Cyst or mass: None. DOPPLER: Color: Blood flow is seen to the left ovary. No hyperemia. CUL-DE-SAC: Free fluid: None. Other: None. IMPRESSION: 1. Normal sonographic appearance of the kidneys. 2. Normal-appearing uterus with endometrial stripe within normal limits. 3. The right ovary was not visualized during this examination. No right adnexal mass is seen. 4. Unremarkable left ovary. DATA REPOSITORY:
== END 2021-11-22 03:21 ==
PROVIDERS: PCP Nurse Practitioner Family; Visit Provider Obstetrics & Gynecology
DX: R10.32 Left lower quadrant pain (principal); K76.0 Fatty (change of) liver, not elsewhere classified
CPT/HCPCS: 76830; 76856

== ENCOUNTER 2022-05-23 03:47 | Outpatient (CLI) | payer MEDICARE, BC, SELFPAY ==
[2022-05-23 12:56] LABS: ALT 28 U/L (14-59); Anion Gap 8.5 mmol/L (3-11); BUN 19 mg/dL (7-18); CO2 29.5 mmol/L (21.0-32.0); CREATININE 1.4 mg/dL (0.55-1.02); Calcium 8.8 mg/dL (8.5-10.1); Calculated LDL 84 mg/dL (<100); Chloride 99 mmol/L (98-107); Cholesterol 165 mg/dL (<200); Estimated GFR 37.18 (mL/min/1.73m2); Glucose 153 mg/dL (74-106); HDL Cholesterol 56 mg/dL (40-60); Potassium 3.6 mmol/L (3.5-5.1); Sodium 137 mmol/L (136-145); TSH (W/Ref FT4) 13.56 uIU/mL (0.36-3.74); Triglyceride 126 mg/dL (<150)
[2022-05-23 13:10] LABS: COMMENT (LAB VIEW ONLY) 156.99 mg/dL; Microalb ug/mg Crea 7.6 ug/mg Cr
[2022-05-23 13:14] LABS: FREE T4 0.68 ng/dL (0.76-1.46)
== END 2022-05-23 03:48 | disposition home or self-care (01) ==
LOC: LOS 03:48
PROVIDERS: PCP Nurse Practitioner Family; Visit Provider Family Medicine
DX: E78.5 Hyperlipidemia, unspecified (principal); E11.9 Type 2 diabetes mellitus without complications; E03.9 Hypothyroidism, unspecified
CPT/HCPCS: 36415; 80048; 80061; 82043; 82570; 83036; 84439; 84443; 84460

== ENCOUNTER 2022-09-19 03:09 | Outpatient (CLI) | payer MEDICARE, BC, SELFPAY ==
[2022-09-19 13:04] LABS: Anion Gap 7.9 mmol/L (3-11); BUN 19 mg/dL (7-18); CO2 30.1 mmol/L (21.0-32.0); CREATININE 1.1 mg/dL (0.55-1.02); Calcium 8.8 mg/dL (8.5-10.1); Chloride 99 mmol/L (98-107); Estimated GFR 53.72 (mL/min/1.73m2); FREE T4 0.84 ng/dL (0.76-1.46); Glucose 166 mg/dL (74-106); Potassium 4.2 mmol/L (3.5-5.1); Sodium 137 mmol/L (136-145); TSH 2.43 uIU/mL (0.36-3.74)
== END 2022-09-19 03:10 | disposition home or self-care (01) ==
LOC: LOS 03:10
PROVIDERS: PCP Nurse Practitioner Family; Visit Provider Nurse Practitioner Family
DX: E03.9 Hypothyroidism, unspecified (principal); N18.30 Chronic kidney disease, stage 3 unspecified
CPT/HCPCS: 36415; 80048; 84439; 84443

== ENCOUNTER → 2022-10-13 00:41 | Outpatient (CLI) | payer MEDICARE, BC, SELFPAY ==
--- NOTE | 2022-10-13 07:15 | DI.DEXA_ITS ---
Exam(s) XR DEXA BONE DENSITY W/WO JHONY EXAM: XR DEXA BONE DENSITY W/WO JHONY CLINICAL HISTORY: reassess osteopenia,SCREENING FOR OSTEOPOROSIS IN POSTMENOPAUSAL WOMAN, TECHNIQUE: Routine DEXA evaluation of the lumbar spine, hip, or forearm. COMPARISON: Prior DEXA scan December 2018 FINDINGS: Performed on a HoloFluid-1 unit. Lateral image: No compression fracture evident. Lumbar Spine total T-score: -0.3. Prior 2019 reading was -0.7. Hip total T-score:-0.7. Prior 2019 reading was -0.6. Independent reading at the level of the femoral neck yields T-score of -0.8 Forearm total T-score: -0.4 IMPRESSION: Bone mineral density measures in the normal range. Fracture risk is no. Note: Any spine fracture indicates 5x risk for subsequent spine fracture and 2x risk for subsequent h ip fracture. World Health Organization criteria for BMD interpretation classify patients: Normal...... T- Score at or above -1.0 Osteopenic... T- Score between -1.0 and -2.5 Osteoporosis... T-Score at or below -2.5
== END ==
PROVIDERS: PCP Nurse Practitioner Family; Visit Provider Nurse Practitioner Family
DX: M85.88 Other specified disorders of bone density and structure, other site (principal); Z78.0 Asymptomatic menopausal state
CPT/HCPCS: 77080

== ENCOUNTER 2023-02-14 03:09 | Outpatient (CLI) | payer MEDICARE, BC, SELFPAY ==
[2023-02-14 12:41] LABS: ALT 31 U/L (14-59); AST 23 U/L (15-37); Albumin 3.6 g/dL (3.4-5.0); Alkaline Phosphatase 79 U/L (46-116); Anion Gap 6.6 mmol/L (3-11); BUN 20 mg/dL (7-18); Bilirubin, Total 0.3 mg/dL (0.2-1.0); CO2 29.4 mmol/L (21.0-32.0); CREATININE 1.2 mg/dL (0.55-1.02); Chloride 104 mmol/L (98-107); Estimated GFR 48.39 (mL/min/1.73m2); Glucose 178 mg/dL (74-106); Potassium 3.7 mmol/L (3.5-5.1); Sodium 140 mmol/L (136-145); TSH 1.88 uIU/mL (0.36-3.74); Total Protein 7.4 g/dL (6.4-8.2)
== END 2023-02-14 03:10 | disposition home or self-care (01) ==
LOC: LOS 03:09
PROVIDERS: PCP Nurse Practitioner Family; Visit Provider Nurse Practitioner Family
DX: N18.30 Chronic kidney disease, stage 3 unspecified (principal); E03.9 Hypothyroidism, unspecified
CPT/HCPCS: 36415; 80053; 84443

== ENCOUNTER 2023-03-05 03:14 | Outpatient (CLI) | payer MEDICARE, BC, SELFPAY ==
[2023-03-05 13:32] LABS: Hemoglobin A1C 7.7 % (<5.7)
== END 2023-03-05 03:15 | disposition home or self-care (01) ==
LOC: LOS 03:14
PROVIDERS: PCP Nurse Practitioner Family; Visit Provider Nurse Practitioner Family
DX: E11.319 Type 2 diabetes mellitus with unspecified diabetic retinopathy without macular edema (principal)
CPT/HCPCS: 36415; 83036

== ENCOUNTER 2023-05-02 08:15 | Outpatient (CLI) | payer MEDICARE, BC, SELFPAY ==
[2023-05-03 10:01] LABS: Lyme Ab w Rflx to Lyme Confirm Negative (Negative)
[2023-05-06 10:11] LABS: Anaplasma phagocytophilum Negative (Negative); B. miyamotoi PCR Negative (Negative); Babesia divergens/MO-1 Negative (Negative); Babesia duncani Negative (Negative); Babesia microti Negative (Negative); Ehrlichia chaffeensis Negative (Negative); Ehrlichia ewingii/canis Negative (Negative); Ehrlichia muris eauclairensis Negative (Negative)
== END 2023-05-02 08:16 | disposition home or self-care (01) ==
LOC: LOS 08:16
PROVIDERS: Nurse Practitioner Family; PCP Nurse Practitioner Family; Referring Provider Nurse Practitioner Family; Visit Provider Nurse Practitioner Family
DX: W57.XXXA Bitten or stung by nonvenomous insect and other nonvenomous arthropods, initial encounter (principal); S70.361A Insect bite (nonvenomous), right thigh, initial encounter; X58.XXXA Exposure to other specified factors, initial encounter
CPT/HCPCS: 36415; 87798; 86618

== ENCOUNTER → 2023-05-10 10:16 | Outpatient (BNVA) | payer MEDICARE, BC, SELFPAY | PROVIDERS: PCP Nurse Practitioner Family; Referring Provider Nurse Practitioner Family; Visit Provider Physical Therapy Assistant | DX: Z12.11 Encounter for screening for malignant neoplasm of colon (principal) ==

== ENCOUNTER 2023-05-31 06:55 | Day surgery (SDC) | payer MEDICARE, BC, SELFPAY ==
--- NOTE | 2023-05-30 18:59 | W.PM.DSUDISC ---
Date of service: 05/31/23 Time of Service: 09:02 Discharge Plan Disposition Patient Disposition: Home Condition: Good Discharge Details Reason For Visit: Screening colonoscopy Attending Provider: Joe Snyder Primary Care Provider: Adeline Lee Home Meds and New Rx's Prescriptions: Continued (DME) blood-glucose meter [OneTouch UltraMini] Kit See Rx Instructions .ROUTE .MEDSUPPLY Qty: 1 3RF Rx Instructions: Check blood sugar once a day simvastatin 20 mg tablet 20 mg PO QPM Qty: 90 3RF Caltrate 600-D Plus Minerals 600 mg calcium- 800 unit-50 mg tablet 1 tab PO DAILY fluticasone propionate [Allergy Relief (fluticasone)] 50 mcg/actuation spray,suspension 2 spray intranasal DAILY PRN (Reason: allergies) Qty: 15.8 4RF Rx Instructions: Administer 2 sprays into each nostril once a day as needed for allergies chlorthalidone 25 mg tablet 25 mg PO DAILY Qty: 90 3RF levothyroxine 100 mcg tablet 100 mcg PO DAILY Qty: 90 3RF gabapentin 300 mg capsule 300 mg PO BID Qty: 180 0RF (DME) FreeStyle Vic 2 Sensor Kit See Rx Instructions .Route Qty: 3 3RF Rx Instructions: Continuous glucose monitor (DME) FreeStyle Vic 2 [place] Misc See Rx Instructions .Route Qty: 1 3RF Rx Instructions: Continuous glucose monitor (DME) OneTouch Ultra Blue Test Strip Strip 1 ea Miscellaneous DAILY Qty: 200 4RF Rx Instructions: Check blood sugar twice a day (DME) lancets [OneTouch UltraSoft Lancets] Misc See Rx Instructions .ROUTE .MEDSUPPLY Qty: 200 4RF Rx Instructions: Check blood sugar twice a day vitamin B complex Capsule 1 cap PO .3x/week ammonium lactate 12 % cream 1 applic TP BID PRN (Reason: dry skin) Qty: 385 3RF citalopram 20 mg tablet 20 mg PO DAILY Qty: 90 3RF metformin 500 mg tablet 500 mg PO BID Qty: 180 3RF cetirizine 10 mg tablet 10 mg PO DAILY Qty: 90 4RF glipizide 5 mg tablet extended release 24hr 5 mg PO DAILY Qty: 90 3RF aspirin [Aspir-81] 81 MG tablet,delayed release (DR/EC) 81 mg PO DAILY epinephrine [EpiPen 2-Renard] 0.3 mg/0.3 mL auto-injector 0.3 mg IM ONCE Qty: 1 0RF Rx Instructions: as a single dose Discontinued bisacodyl [Dulcolax (bisacodyl)] 5 mg tablet,delayed release (DR/EC) 5 mg PO ONCE Qty: 4 0RF Rx Instructions: Take per colonoscopy instructions provided by ordering providers office polyethylene glycol 3350 17 gram/dose powder 17 g PO ONCE Qty: 238 0RF Rx Instructions: Take per colonoscopy instructions provided by ordering providers office Discharge Instructions Instructions: Diverticulosis (GEN), Diverticulosis Diet (GEN) Additional Instructions: Appendectomy, you did great during your colonoscopy today. The quality of your prep was excellent. I did not see any signs of tumors or polyps anywhere along the length of the large intestine. Incidentally, you do have some diverticulosis. These are small weak spots in the colon wall. If they become inflamed or infected, patients typically experience pain on the left side of their abdomen, and sometimes down across the lower part. If this happens, it is usually treated with antibiotics. Many patients have diverticulosis, and never have any symptoms from it. We have attached some general information here regarding typical management of diverticular disease. Because you had a negative screening colonoscopy with regards to polyps and tumors, you will need another one for 10 years. 1. If tolerated, consume a soft, low fiber diet for 1-2 days. 2. Do not drive, drink alcohol, operate machinery, make critical decisions, or do activities that require coordination or balance for 24 hours. 3. Because air was put into your colon during the procedure, expelling air from your rectum (passing gas or farting) is normal. 4. You may not have a bowel movement for 1-3 days because of the colonoscopy prep. This is normal. 5. Go directly to the emergency room if you notice any of the following: Develop chills (warm to touch), or if you have a thermometer and your temperature is above 101 Difficulty breathing or difficultly swallowing Persistent vomiting Severe abdominal pain, other than gas cramps Severe chest pain Black, tarry stools Any bleeding ? exceeding one tablespoon 6. Call your physician if the site where your intravenous was started becomes red, swollen, painful, and warm to touch. 7. Your physician has reviewed your pre-procedure medications. Please continue to take those medications as previously ordered. You will be given specific information/education regarding any changes to your medications before leaving. Stand Alone Forms: Callie Vázquez ([email or web address]) Activity:: Activity as Tolerated Diet:: As Tolerated Discharge Orders Discharge Orders: Discharge Order (Routine); Ordered 05/30/23 Ordered By: Joe Snyder DS: Diagnosis Discharge Diagnosis (1) Screen for colon cancer: Status: Acute Asessment and Plan: Negative screening colonoscopy
--- NOTE | 2023-05-30 19:02 | COLE_ITS ---
Date of service: 05/31/23 Time of Service: 09:04 Colonoscopy Report Date of procedure: 05/31/23 Pre-op diagnosis general: screening colonoscopy Post-op diagnosis procedure note: other (Diverticulosis) Procedure: Colonoscopy Surgeon: Joe Snyder Anesthesia Type: General:No Airway Estimated blood loss (mL): 0 Pathology: none sent Complications: None Disposition: same day Indications: Angella is 72 years old and she needs a screening colonoscopy Prep: Miralax/Dulcolax Procedure Start Time: 08:30 Procedure End Time: 08:47 Retraction Time: 12 Findings: Sigmoid diverticulosis Procedure Description: After the induction of monitored anesthetic care, and with the patient in left lateral decubitus position, I began by performing an external anorectal exam.? Perineum and skin were normal, as was the anal verge.? There was no evidence of external hemorrhoids.? Next, I performed a digital rectal exam.? I did not appreciate any abnormal findings.? Next, I advanced a colonoscope into the rectal vault.? I performed retroflexion.? This was normal.? Using insufflation, I then advanced the colonoscope beyond the rectal folds and into the sigmoid colon before advancing towards the cecum.? The quality of the prep was excellent .? The scope was noted to be in the cecum by identification of the ileocecal valve and appendiceal orifice.? I then began withdrawing the colonoscope using repeated irrigation as necessary for full evaluation of the colonic mucosa. There was some sigmoid diverticulosis. ?Once the scope was withdrawn to the level of the rectum, great care was taken to examine portions of the rectal folds.? Finally, the scope was withdrawn and the patient was brought to the same-day surgery recovery unit as the anesthetic wore off. ?The findings and instructions were shared with the patient prior to discharge.
--- NOTE | 2023-05-31 06:49 | ANES.PREOP_ITS ---
General Info Date of Service Date Performed: 05/31/23 Height: 5 ft Weight: 81.647 kg Body Mass Index (BMI): 35.2 Surgical Procedure: Operation Date: 05/31/23 08:20 Proposed Procedure Side Surgeon alexia Snyder MD Meds Allergies and Home Medications Allergies Allergy/AdvReac Type Severity Reaction Status Date / Time amoxicillin Allergy Severe Hives Verified 05/31/23 07:12 blueberry Allergy Intermediate SWELLING Verified 05/31/23 07:12 COVID-19 vaccine, mRNA, Allergy angioedema Verified 05/31/23 07:12 [id number], [COVID-19 vaccine, mRNA-1273, LNP-S] Home Medication Medication Instructions Recorded aspirin 81 mg tablet,delayed 81 mg PO DAILY 03/02/14 release (Aspir-) calcium 600 mg-D3 800 unit-mag11 1 tab PO DAILY 07/09/19 50 hr-ielm-cvahtw-pamela-s.borat tablet (Caltrate 600-D Plus Minerals) blood-glucose meter (OneTouch #1 ea 11/27/19 UltraMini kit) blood sugar diagnostic (OneTouch #200 ea 11/08/20 Ultra Blue Test Strip) lancets (OneTouch UltraSoft #200 ea 11/08/20 Lancets) epinephrine 0.3 mg/0.3 mL 0.3 mg (0.3 mL) IM ONCE #1 ea 01/11/21 injection, auto-injector (EpiPen 2-Renard) vitamin B complex 1 cap PO .3x/week 01/21/21 fluticasone propionate 50 2 spray intranasal DAILY PRN 08/29/21 mcg/actuation nasal allergies #15.8 mL spray,suspension (Allergy Relief (fluticasone)) ammonium lactate 12 % topical cream 1 applic topical BID PRN dry skin 11/16/21 #385 grams citalopram 20 mg tablet 20 mg PO DAILY #90 tabs 08/07/22 simvastatin 20 mg tablet 20 mg PO QPM #90 tabs 08/16/22 metformin 500 mg tablet 500 mg PO BID #180 tabs 09/04/22 cetirizine 10 mg tablet 10 mg PO DAILY #90 tabs 09/19/22 glipizide 5 mg tablet, extended 5 mg PO DAILY #90 tabs 04/06/23 release 24 hr chlorthalidone 25 mg tablet 25 mg PO DAILY #90 tabs 05/02/23 flash glucose scanning reader #1 ea 05/02/23 (FreeStyle Vic 2 Nice) flash glucose sensor (FreeStyle #3 ea 05/02/23 Vic 2 Sensor kit) gabapentin 300 mg capsule 300 mg PO BID #180 caps 05/02/23 levothyroxine 100 mcg tablet 100 mcg PO DAILY #90 tabs 05/02/23 Current Visit Medications: Current Medications Generic Name Dose Route Start Last Admin Trade Name Freq PRN Reason Stop Dose Admin Hyoscyamine Sulfate 0.125 mg 05/30/23 19:03 Hyoscyamine 0.125 Mg Sl/Oral/Chew SL 06/29/23 19:02 DIRECTED PRN Ringer's Solution 1,000 mls @ 80 mls/hr 05/31/23 06:00 IV 05/31/23 23:59 INFUSION [facility] IV Miscellaneous Supplies 1 each 05/31/23 06:00 Iv Access IV 05/31/23 23:59 DIRECTED MASTER Ondansetron HCl 4 mg 05/30/23 19:03 Ondansetron 4 Mg/2 Ml Vial IVP 06/29/23 19:02 Q4H PRN PRN Nausea / Vomiting Sodium Chloride 0 ml 05/31/23 06:00 Normal Saline Flush 10 Ml Syr IV 05/31/23 23:59 PRN PRN Sodium Chloride 0 ml 05/31/23 06:00 Normal Saline 10 Ml Vial IJ 05/31/23 23:59 DIRECTED PRN Sterile Water 0 ml 05/31/23 06:00 Water,Injection,Sterile 10 Ml Vial IJ 05/31/23 23:59 DIRECTED PRN PFSH Active Problems Active Problems: Problem Status Onset Code Screen for colon cancer Z12.11 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.319 Essential hypertension I10 Hyperlipidemia E78.5 Hypothyroidism E03.9 Diabetic neuropathy E11.40 Obesity E66.9 Depressive disorder F32.9 Insomnia G47.00 Sigmoid diverticulosis K57.30 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 Vitiligo L80 Incontinence in female R32 CKD (chronic kidney disease) stage 3, GFR 30-59 ml/min N18.30 Medical History Medical History Angioedema After first dose of Moderna vaccine 12/2020 Osteopenia Resolved on 2021 dexa Surgical History Surgical History History of carpal tunnel surgery of left wrist (02/11/19) History of carpal tunnel surgery of right wrist (12/31/18) S/P trigger finger release (12/31/18) Of right middle and index finger 12/31/18 Of left middle and index finger 02/11/19 Tobacco Smoking/Tobacco Use Status: Never Passive smoking exposure: Yes Second hand exposure: Yes Alcohol Alcohol Intake: current Alcohol intake frequency: 0-2 drinks per day Alcohol type: wine Substance Use Substance use: Never Substance use type: does not use Prental History History 2 Para 2 Hx # Term Pregnancies 2 Multiple births 0 Hx # Pregnancies 0 Ectopic pregnancies 0 AB induced 0 Hx Number of Living Children 2 AB spontaneous 0 Vital Signs and Lab Results Lab Results Blood Type / Crossmatch: No Data to Display Complete Blood Count: No Data to Display Complete Metabolic Panel: No Data to Display Liver Function Panel: No Data to Display Coagulation Panel: No Data to Display Cardiac Panel: No Data to Display Arterial Blood Gas: No Data to Display Venous Blood Gas: No Data to Display Pancreas Panel: No Data to Display Thyroid Panel: No Data to Display Infectious Disease: No Data to Display Blood Cultures: No Data to Display Toxicology Panel: No Data to Display Anesthesia Assessment and Plan Anesthesia History Personal History: No History of Anesthesia Complications Family History: No Family History of Anesthesia Complications Exercise Tolerance Exercise Tolerance: Metabolic Equivalents>4 Pertinent Negatives Pertinent Negatives: No Symptoms of GERD, No Major Cardiovascular Symptoms or Complaints, No Major Pulmonary Symptoms or Complaints and No History of CVA/TIA Cardiac & Pulmonary Exam Cardiac Exam: Normal S1/S2 Heart Sounds Pulmonary Exam: Clear Bilateral Breath Sounds Implantable Cardiac Device Does patient have a Pacemaker or an ICD?: No Airway Exam Known Difficult Airway: No Mallampati Class: 2 Mouth Opening: Normal (> 3cm) Thyromental Distance: Greater than 3 cm Neck Range of Motion: Full ROM Neck Circumference: Normal Teeth Condition: Removable Dentures/Plates Upper and Removable Dentures/Plates Lower ASA Classification ASA Score: ASA 2 Emergency Case?: No NPO Status NPO Status: NPO Clears >2 hours, Solids >8 hours Anesthesia Plan Resuscitation Status: Full Code Anesthesia Technique: General Anesthesia Airway Planned: Natural Airway Monitors Used: Standard Monitors Preoperative Comments:: 72 yo female for colonoscopy. History of CKD(stage 3), DM2, Hypothyroid. Did develop angioedema from COVID vaccine and was seen in ER by Blair Rose (reference note if any questions).
[2023-05-31 07:04] VITALS: BP 134/73; PULSE 66; RESP 17; TEMP 36.3; O2SAT 96
[2023-05-31] MEDS: Lactated Ringers 1,000 ML 80 ML IV (07:25)
[2023-05-31 08:06] VITALS: BMI 35.2
[2023-05-31 08:53] VITALS: BP 99/63; PULSE 52; RESP 16; TEMP 36.3; O2SAT 96
[2023-05-31 09:18] VITALS: BP 105/66; PULSE 59; RESP 18; TEMP 36.6; O2SAT 97
--- NOTE | 2023-05-31 09:27 | W.ANESPOSTOP ---
Postoperative Evaluation Date, Time and Location Date Performed: 05/31/23 Time Performed: 09:28 Patient Location: Day Surgery Unit Vital Signs Most Recent Imported Vital Signs: Most Recent Vital Signs Temp Pulse Resp BP Pulse Ox 36.6 C 59 L 18 105/66 97 05/31/23 09:18 05/31/23 09:18 05/31/23 09:18 05/31/23 09:18 05/31/23 09:18 Pain Score Most Recent Pain Score: Most Recent Pain Score Pain Level 0 05/31/23 09:18 Assessment Mental Status: Awake (Alert & Oriented to Patient Baseline) Airway and Respiratory Function: Patent airway with normal (patient baseline) respiratory exam Cardiovascular Function: Hemodynamically Stable Hydration Status: Adequately Hydrated Nausea & Vomiting: No Nausea or Vomiting Pain: Pt. Denies Any Pain Peripheral Nerve Block: Patient did not receive a nerve block
== END 2023-05-31 09:47 | disposition home or self-care (01) ==
PROVIDERS: PCP Nurse Practitioner Family; Visit Provider Surgery
PROC: 0DJD8ZZ Inspection of Lower Intestinal Tract, Via Natural or Artificial Opening Endoscopic (ICD-10-PCS; CPT 45378; principal; 2023-05-31 08:15)
DX: Z12.11 Encounter for screening for malignant neoplasm of colon (principal); K57.30 Diverticulosis of large intestine without perforation or abscess without bleeding
CPT/HCPCS: G0121

== ENCOUNTER → 2023-08-07 00:48 | Outpatient (CLI) | payer MEDICARE, BC, SELFPAY ==
--- NOTE | 2023-08-07 06:30 | DI.CT_ITS ---
Exam(s) CT HEAD WO EXAM: CT HEAD WO CLINICAL HISTORY: dizziness, fall, right orbital ecchymosis,r42,W19.xxxa. TECHNIQUE: Imaging Protocol: Axial computed tomography images with coronal and sagittal reformatted images were created and reviewed COMPARISON: No exams were available for comparison FINDINGS: Ventricles and Extra axial spaces: Normal in size and morphology for the patient's age. Hemorrhage: None. Cerebral parenchyma: There are mild areas of decreased attenuation in the white matter most consisten t with small vessel ischemic disease. No mass effect. Midline shift: None. Brainstem/Cerebellum: Normal. Calvarium: Normal. Visualized Paranasal sinuses/Mastoids: Clear. Soft Tissues: Unremarkable. IMPRESSION: No acute intracranial process. RADIATION DOSE DELIVERED: Total DLP DATA REPOSITORY: All CT scans at this facility are submitted to the National Radiology Data Registry (NRDR) Dose Index Registry (DIR) with the [employer] (ACR). RADIATION OPTIMIZATION: All CT scans at this facility use at least one of these dose optimization te chniques: automated exposure control; mA and/or kV adjustment per patient size (includes targeted exa ms where dose is matched to clinical indication); or iterative reconstruction.
== END ==
PROVIDERS: PCP Nurse Practitioner Family; Visit Provider Nurse Practitioner Family
DX: R42 Dizziness and giddiness (principal); W19.XXXA Unspecified fall, initial encounter
CPT/HCPCS: 70450

== ENCOUNTER 2023-08-09 01:01 | Outpatient (CLI) | payer MEDICARE, BC, SELFPAY ==
[2023-08-09 12:47] LABS: HCT 34.9 % (36.0-46.0); HGB 11.5 g/dL (11.2-15.7); MCH 30.3 pg (27.0-33.0); MCV 92 fL (80-95); Platelet Count 187 10^3/uL (130-400); RDW 13.2 % (11.7-14.6); RDW-SD 44.2 fL; WBC 5.43 10^3/uL (4.4-10.8)
[2023-08-09 13:13] LABS: ALT 37 U/L (14-59); AST 22 U/L (15-37); Albumin 3.7 g/dL (3.4-5.0); Alkaline Phosphatase 79 U/L (46-116); Anion Gap 6.9 mmol/L (3-11); BUN 15 mg/dL (7-18); Bilirubin, Total 0.3 mg/dL (0.2-1.0); CO2 29.1 mmol/L (21.0-32.0); CREATININE 1.1 mg/dL (0.55-1.02); Calcium 9.3 mg/dL (8.5-10.1); Chloride 102 mmol/L (98-107); Estimated GFR 53.72 (mL/min/1.73m2); Glucose 157 mg/dL (74-106); Sodium 138 mmol/L (136-145); TSH (W/Ref FT4) 1.47 uIU/mL (0.36-3.74); Total Protein 7.5 g/dL (6.4-8.2)
[2023-08-09 21:41] LABS: Lab Add On Test DONE
[2023-08-09 22:07] LABS: Ferritin 221 ng/mL (8-252); Folate 14.8 ng/mL (8.6-20.0); Vitamin B12 486 pg/mL (193-986)
== END 2023-08-09 01:02 | disposition home or self-care (01) ==
LOC: LOS 01:02
PROVIDERS: PCP Nurse Practitioner Family; Visit Provider Nurse Practitioner Family
DX: R42 Dizziness and giddiness (principal); W19.XXXA Unspecified fall, initial encounter; D64.9 Anemia, unspecified
CPT/HCPCS: 36415; 80053; 85027; 82607; 82728; 82746; 84443

== ENCOUNTER → 2023-10-16 01:36 | Outpatient (CLI) | payer MEDICARE, BC, SELFPAY ==
--- NOTE | 2023-10-16 07:45 | DI.MRI_ITS ---
Exam(s) MR IAC BRAIN WO/W EXAM: MR IAC BRAIN WO/W CLINICAL HISTORY: right hearing loss,dizzy,falls,?neuroma,h91.91,r42 TECHNIQUE: Multiplanar multisequence MRI of the brain was performed. Both noninfused and contrast i nfused sequences were performed. IV Contrast injected was 17 cc Dotarem. COMPARISON: CT CT HEAD WO from 08/07/2023 FINDINGS: CEREBRAL PARENCHYMA: No evidence of intracranial hemorrhage, mass effect nor shift of midline structu re. No extraaxial fluid collections. Ventricles are not enlarged nor shifted. There is no significant focal signal abnormality in the cerebellar hemispheres nor within the dudley, m idbrain, and thalami. There few small nonspecific foci of FLAIR bright signal abnormality in left periventricular white mat ter, not associated with hemorrhage, surrounding edema, enhancement, nor restricted diffusion. There is no abnormal focal signal on diffusion imaging. IAC's: No evidence of mass in the cerebellopontine angles and no evidence of intra canalicular enhanc ing mass. The 7th and 8th intra cranial nerves appear unremarkable in the internal auditory canals, bilaterally. SWI: No microhemorrhages evident. There are no ring enhancing lesions in the brain. There is no abnormal meningeal enhancement. PITUITARY GLAND: No mass nor parasellar abnormality. No obvious abnormality in the cavernous sinuses. FLOW VOIDS: The expected flow void are noted. No evidence of obvious aneurysm nor obvious vascular ma lformation. PARANASAL SINUSES: The visualized paranasal sinuses appear unremarkable. ORBITS: No obvious abnormal findings. IMPRESSION: 1. No evidence of acoustic neuroma/schwannoma, as per request. 2. No abnormal enhancing intracranial findings. There are no ring enhancing lesions in the brain and there is no abnormal meningeal enhancement. 3. There are a few small foci of nonspecific white matter signal abnormality in the left periventric ular white matter, associated with hemorrhage, surrounding edema, enhancement, nor restricted diffusi on. If clinically indicated repeat MRI scan in 6 months can be performed to ensure stability of this nonspecific finding. DATA REPOSITORY:
--- NOTE | 2023-10-16 07:45 | DI.MRI_ITS ---
Exam(s) MR CERVICAL SPINE WO EXAM: MR CERVICAL SPINE WO CLINICAL HISTORY: dizziness, falls, ? spinal stenosis,W19.xxxa TECHNIQUE: Multiplanar multisequence MRI of the cervical spine was performed without intravenous con trast. COMPARISON: No exams were available for comparison FINDINGS: CERVICOMEDULLARY JUNCTION: Intact with no evidence of cerebellar tonsillar ectopia. No obvious abnor mality of the odontoid process. No evidence of Chiari 1 malformation. CERVICAL SPINAL CORD: There is no abnormal signal in the cervical spinal cord and no evidence of foca l cord atrophy nor focal cord swelling. OSSEOUS:There are no cervical fractures evident. No significant osseous lesions in the cervical vert ebrae. Normal cervical curvature is maintained. INDIVIDUAL LEVELS: C2-3: No disc herniation nor central canal stenosis. No foraminal stenosis. No facet arthropathy. C3-4: Normal disc height. There is no obvious disc herniation or central canal stenosis. No promine nt facet arthropathy nor foraminal stenosis. C4-5: Mild disc space narrowing. There is annular bulging with a superimposed small central subligam entous focal disc bulge which indents the thecal sac and contacts the anterior cervical cord. There is mild central canal stenosis at this level. The AP dimension of the canal at this level is 8 mm. There is no abnormal signal in the cervical cord at this level. Facet joints exhibit mild degenerati ve changes. No significant foraminal stenosis. C5-6: Mild disc space narrowing. There is to posterior annular bulging which is more prominent on th e left side. There is a small posterolateral left disc protrusion associated with small Luschka join t osteophytes. There is mild central canal stenosis at this level due, with AP measurement of the ca nal at this level 10 mm. There is no facet arthropathy evident at this level. Mild left-sided kumar inal stenosis. No foraminal stenosis on the right side. C6-7: Mild decreased disc height. Mild annular bulging, slightly more so on the left side. No promi nent disc herniation. Central canal dimensions are lower normal. Facet joints appear unremarkable. No significant foraminal stenosis at this level. C7-T1: No disc herniation nor central canal stenosis. No facet arthropathy.No foraminal stenosis. IMPRESSION: 1. Mild findings at C4-5 and C5-6 levels, as described above. Mild central canal stenosis at C4-5 an d C5-6 levels. 2. There is minimal facet arthrosis in the cervical spine. No prominent foraminal stenosis evident. Mild foraminal stenosis seen on the left side at C5-6 level level, this is related to left-sided dis c/osteophyte complex. 3. No abnormal signal in the cervical spinal cord. No evidence of focal cord swelling nor focal cord atrophy. No syrynx. No cerebellar tonsillar ectopia. DATA REPOSITORY:
[2023-10-16] MEDS: Normal Saline Flush 10 ML SYR IVP (10:31)
[2023-10-16] MEDS: Gadoterate meglumine 20 ML SYRINGE 17 ML IVP (10:32)
== END ==
PROVIDERS: PCP Nurse Practitioner Family; Visit Provider Nurse Practitioner Family
DX: E11.40 Type 2 diabetes mellitus with diabetic neuropathy, unspecified (principal); H91.91 Unspecified hearing loss, right ear; R42 Dizziness and giddiness; W19.XXXA Unspecified fall, initial encounter; M48.00 Spinal stenosis, site unspecified
CPT/HCPCS: 70553; 72141

== ENCOUNTER 2023-11-02 01:20 | Outpatient (CLI) | payer MEDICARE, BC, SELFPAY ==
[2023-11-02 19:55] LABS: Hepatitis C Ab w Rflx HCV PCR Negative (Negative)
== END 2023-11-02 01:21 | disposition home or self-care (01) ==
LOC: LOS 01:21
PROVIDERS: PCP Nurse Practitioner Family; Visit Provider Nurse Practitioner Family
DX: Z00.00 Encounter for general adult medical examination without abnormal findings (principal)
CPT/HCPCS: 36415; 86803

== ENCOUNTER 2023-11-23 10:52 | Outpatient (CLI) | payer MEDICARE, BC, SELFPAY ==
--- NOTE | 2023-11-23 10:45 | RT.EKG_ITS ---
APPROVED REPORT Exam: Resting ECG Reason for Exam: back pain Patient Location: O HR:60 bpm ECG Measurements Heart Rate 60 AXIS MN 179 P -24 QRSd 89 QRS -14 QT 442 T 165 QTc 442 Conclusion Sinus rhythm...normal P axis, V-rate 50- 99 Nonspecific T abnormalities, diffuse leads...T <-0.10mV, ant/lat/inf Baseline wander in lead(s) V1,V2 I have reviewed and interpreted ECG and agree with software generated interpretation.
== END 2023-11-23 10:53 | disposition home or self-care (01) ==
LOC: DI.CM 10:53
PROVIDERS: PCP Nurse Practitioner Family; Visit Provider Family Medicine
DX: I34.0 Nonrheumatic mitral (valve) insufficiency (principal)
CPT/HCPCS: 93010

== ENCOUNTER → 2023-11-23 15:07 | Outpatient (CLI) | payer MEDICARE, BC, SELFPAY ==
--- NOTE | 2023-11-23 11:00 | DI.CT_ITS ---
Exam(s) CT CHEST WO EXAM: CT CHEST WO CLINICAL HISTORY: feels something inside, unable to lay down, acute thoracic back pain, M54.6 TECHNIQUE: Imaging Protocol: Axial computed tomography images with coronal and sagittal reformatted images were created and reviewed CONTRAST MATERIAL: Intravenous: Omnipaque 350 Contrast volume:structured data ml. COMPARISON: No exams were available for comparison FINDINGS: Pulmonary parenchyma: Somewhat limited evaluation at the lung bases due to respiratory motion. No co nsolidation. No dominant measurable mass. No significant emphysematous or fibrotic changes. Tracheobronchial tree: No bronchiectasis or mucous plugging. Mediastinum and Lashanda: Tiny hiatal hernia. No dominant adenopathy or fluid collection. Pleura: No effusion. No pneumothorax. Heart: The heart is mildly dilated. Moderate coronary artery calcifications are seen. Aorta: Thoracic aorta non-dilated. Mild atherosclerotic changes. Upper abdomen: Hepatic steatosis. No acute findings.. Bones: Degenerative changes in the spine. No compression fractures. No suspicious lesions. Soft tissues: Unremarkable. IMPRESSION: No acute abnormality. RADIATION DOSE DELIVERED: 515.17mGy.cm Total DLP DATA REPOSITORY: All CT scans at this facility are submitted to the National Radiology Data Registry (NRDR) Dose Index Registry (DIR) with the [employer] (ACR). RADIATION OPTIMIZATION: All CT scans at this facility use at least one of these dose optimization te chniques: automated exposure control; mA and/or kV adjustment per patient size (includes targeted exa ms where dose is matched to clinical indication); or iterative reconstruction.
== END ==
PROVIDERS: PCP Nurse Practitioner Family; Visit Provider Family Medicine
DX: M54.6 Pain in thoracic spine (principal)
CPT/HCPCS: 71250

== ENCOUNTER 2023-11-30 16:01 | Outpatient (REF) | payer MEDICARE, BC, SELFPAY ==
[2023-11-30 13:42] LABS: Microalb ug/mg Crea 9.6 ug/mg Cr
== END 2023-11-30 16:02 | disposition home or self-care (01) ==
LOC: LBN 16:01
PROVIDERS: PCP Nurse Practitioner Family; Visit Provider Nurse Practitioner Family
DX: E11.9 Type 2 diabetes mellitus without complications (principal)
CPT/HCPCS: 82043; 82570

== ENCOUNTER 2024-01-11 02:03 | Outpatient (CLI) | payer MEDICARE, BC, SELFPAY ==
[2024-01-11 12:21] LABS: Abs Immature Grans 0.02 10^3/uL (0.0-0.06); Absolute Basophil Count 0.03 10^3/uL (0.0-0.2); Absolute Monocyte Count 0.34 10^3/uL (0.1-0.8); Absolute Neutrophil Count 3.39 10^3/uL (1.2-6.7); Basophils % 0.6; Eosinophils % 4.1; HCT 36.7 % (36.0-46.0); Immature Grans % 0.4; Lymphocytes % 18.4; MCH 29.3 pg (27.0-33.0); MCHC 32.7 % (32.0-36.0); MCV 90 fL (80-95); MPV 10.1 fL (8.0-11.0); Neutrophils % 69.5; Platelet Count 197 10^3/uL (130-400); RBC 4.09 10^6/uL (3.93-5.22); RDW 12.6 % (11.7-14.6); WBC 4.88 10^3/uL (4.4-10.8)
== END 2024-01-11 02:04 | disposition home or self-care (01) ==
LOC: LOS 02:03
PROVIDERS: PCP Nurse Practitioner Family; Visit Provider Family Medicine
DX: M54.6 Pain in thoracic spine (principal)
CPT/HCPCS: 36415; 85025

== ENCOUNTER 2024-04-11 14:42 | Outpatient (REF) | payer MEDICARE, BC, SELFPAY | END 2024-04-11 14:43 | disposition home or self-care (01) | LOC: LBN 14:42 | PROVIDERS: PCP Nurse Practitioner Family; Visit Provider Nurse Practitioner Family | DX: N76.0 Acute vaginitis (principal) | CPT/HCPCS: 87480; 87510; 87660 ==

== ENCOUNTER 2024-06-09 22:58 | Outpatient (REF) | payer MEDICARE, BC, SELFPAY ==
[2024-06-09 16:40] LABS: Bilirubin Negative (Negative); Blood Trace-intact (Negative); Clarity Sl Cloudy (Clear); Glucose Negative (Negative); Ketones Negative (Negative); Leukocyte Esterase Moderate (Negative); Nitrite Positive (Negative); Urobilinogen 0.2 mg/dL (Up to 0.2)
[2024-06-09 17:29] LABS: Bacteria Many HPF (Negative); C & S Indicated? No/Sq. Contamination; Crystals Negative HPF (Negative); Epithelial Cells Moderate HPF (Negative); Mucus Trace (Negative); WBC 20-50 HPF (0-5)
== END 2024-06-09 22:59 | disposition home or self-care (01) ==
LOC: LBN 22:58
PROVIDERS: PCP Nurse Practitioner Family; Visit Provider Nurse Practitioner Family
DX: R35.0 Frequency of micturition (principal)
CPT/HCPCS: 81003; 81015

== ENCOUNTER 2024-08-28 10:04 | Outpatient (CLI) | payer MEDICARE, BC, SELFPAY ==
[2024-08-28 12:42] LABS: ALT 30 U/L (14-59); AST 32 U/L (15-37); Albumin 3.5 g/dL (3.4-5.0); Alkaline Phosphatase 75 U/L (46-116); Anion Gap 5.9 mmol/L (3-11); BUN 22 mg/dL (7-18); Bilirubin, Total 0.33 mg/dL (0.2-1.0); CO2 33.1 mmol/L (21.0-32.0); CREATININE 1.1 mg/dL (0.55-1.02); Calcium 9.3 mg/dL (8.5-10.1); Calculated LDL 97 mg/dL (<100); Chloride 106 mmol/L (98-107); Cholesterol 185 mg/dL (<200); Estimated GFR 53.39 (mL/min/1.73m2); Glucose 99 mg/dL (74-106); HDL Cholesterol 52 mg/dL (40-60); Potassium 3.7 mmol/L (3.5-5.1); Sodium 145 mmol/L (136-145); TSH (W/Ref FT4) 0.16 uIU/mL (0.36-3.74); Total Protein 7.4 g/dL (6.4-8.2); Triglyceride 180 mg/dL (<150)
[2024-08-28 13:01] LABS: FREE T4 0.87 ng/dL (0.76-1.46)
== END 2024-08-28 10:05 | disposition home or self-care (01) ==
LOC: LOS 10:04
PROVIDERS: PCP Nurse Practitioner Family; Referring Provider Nurse Practitioner Family; Visit Provider Nurse Practitioner Family
DX: E11.319 Type 2 diabetes mellitus with unspecified diabetic retinopathy without macular edema (principal); E03.9 Hypothyroidism, unspecified; Z12.39 Encounter for other screening for malignant neoplasm of breast; E11.40 Type 2 diabetes mellitus with diabetic neuropathy, unspecified
CPT/HCPCS: 36415; 80053; 80061; 84439; 84443

== ENCOUNTER 2024-11-18 02:30 | Outpatient (CLI) | payer MEDICARE, BC, SELFPAY ==
[2024-11-18 13:19] LABS: PHOSPHORUS 4.5 mg/dL (2.6-4.7); TSH (W/Ref FT4) 9.26 uIU/mL (0.36-3.74)
[2024-11-18 13:55] LABS: FREE T4 0.56 ng/dL (0.76-1.46)
[2024-11-18 14:37] LABS: Vitamin D 25 Total 43.5 ng/mL (30-100)
[2024-11-18 19:30] LABS: Parathyroid Hormone,Intact 66.9 pg/mL (19.0-88.0)
== END 2024-11-18 02:31 | disposition home or self-care (01) ==
LOC: LOS 02:30
PROVIDERS: PCP Nurse Practitioner Family; Visit Provider Nurse Practitioner Family
DX: E03.9 Hypothyroidism, unspecified (principal); N18.30 Chronic kidney disease, stage 3 unspecified
CPT/HCPCS: 36415; 82306; 83970; 84100; 84439; 84443

== ENCOUNTER 2025-01-09 16:15 | Outpatient (REF) | payer MEDICARE, BC, SELFPAY ==
[2025-01-09 13:17] LABS: Abs Immature Grans 0.01 10^3/uL (0.0-0.06); Absolute Basophil Count 0.05 10^3/uL (0.0-0.2); Absolute Eosinophil Count 0.21 10^3/uL (0.0-0.7); Absolute Lymphocyte Count 0.89 10^3/uL (1.2-3.4); Absolute Monocyte Count 0.46 10^3/uL (0.1-0.8); Absolute Neutrophil Count 3.17 10^3/uL (1.2-6.7); Eosinophils % 4.4 %; HCT 37.2 % (36.0-46.0); HGB 12.1 g/dL (11.2-15.7); Immature Grans % 0.2 %; Lymphocytes % 18.6 %; MCH 29.6 pg (27.0-33.0); MCHC 32.5 % (32.0-36.0); MCV 91 fL (80-95); MPV 9.9 fL (8.0-11.0); Monocytes % 9.6 %; Neutrophils % 66.2 %; Platelet Count 175 10^3/uL (130-400); RBC 4.09 10^6/uL (3.93-5.22); RDW 13.1 % (11.7-14.6); RDW-SD 43.1 fL; WBC 4.79 10^3/uL (4.4-10.8)
[2025-01-09 13:36] LABS: ALT 34 U/L (14-59); AST 26 U/L (15-37); Albumin 3.7 g/dL (3.4-5.0); Alkaline Phosphatase 91 U/L (46-116); Anion Gap 7.6 mmol/L (3-11); BUN 18 mg/dL (7-18); Bilirubin, Total 0.3 mg/dL (0.2-1.0); CO2 31.4 mmol/L (21.0-32.0); Calcium 9.1 mg/dL (8.5-10.1); Chloride 104 mmol/L (98-107); Estimated GFR 59.49 (mL/min/1.73m2); Glucose 103 mg/dL (74-106); Lipase 70 U/L (<78); Potassium 3.8 mmol/L (3.5-5.1); Sodium 143 mmol/L (136-145); Total Protein 7.3 g/dL (6.4-8.2)
== END 2025-01-09 16:16 | disposition home or self-care (01) ==
LOC: LBN 16:15
PROVIDERS: PCP Nurse Practitioner Family; Visit Provider Physician Assistant
DX: R10.9 Unspecified abdominal pain (principal); E03.9 Hypothyroidism, unspecified
CPT/HCPCS: 80053; 83690; 84443; 85025; 87086

== ENCOUNTER 2025-01-15 01:16 | Outpatient (CLI) | payer MEDICARE, BC, SELFPAY ==
[2025-01-15] MEDS: Barium Sulfate 2% W/V-Berry Smoothie 450 ML BTL PO (07:10)
[2025-01-15] MEDS: Barium Sulfate 2% W/V-Creamy Vanilla Smoothie 450 ML BTL PO (07:11)
[2025-01-15] MEDS: Omnipaque 350 MG/ML 100 ML BTL IJ (09:20)
[2025-01-15] MEDS: Normal Saline - Diluent 50 ML VIAL IJ (09:21)
--- NOTE | 2025-01-15 09:30 | DI.CT_ITS ---
Exam(s) CT ABDOMEN PELVIS W EXAM: CT ABDOMEN PELVIS W CLINICAL HISTORY: flank and lower abd pain,r10.9. TECHNIQUE: Imaging Protocol: Axial computed tomography images with coronal and sagittal reformatted images were created and reviewed CONTRAST MATERIAL: Intravenous: Omnipaque 350 Contrast volume:75 ml Oral: yes , barium COMPARISON: CT CT ABDOMEN PELVIS WO from 07/05/2019 FINDINGS: ABDOMEN and PELVIS: Lung Bases: No acute findings. Liver: Normal density. No suspicious mass. Gallbladder and biliary tract: No radiodense calculus. No wall thickening or pericholecystic fluid. No biliary dilation. Pancreas: Normal density. No abnormal calcifications or inflammatory process. No evidence of mass. Spleen: Normal. Kidneys: Normal size, contour and axis. No radiodense stones. No obstructive uropathy. No suspicious masses seen. Adrenal glands: No masses seen. Vasculature: Abdominal aorta non-dilated. Soft tissues: Unremarkable. Bladder: No gross wall thickening. No calculi.No focal mass. Bowel: There are 2 diverticula of the transverse duodenum. Of the transverse duodenum. No obstructi on. No bowel wall thickening. Appendix normal. Peritoneal cavity: No ascites. No focal collection. No mesenteric inflammatory response. No free air . Bones: Scoliosis and degenerative changes. Reproductive organs: Pessary. Uterus and ovaries are unremarkable. Lymph nodes: No pathologically enlarged lymph nodes. IMPRESSION:: No acute abnormality in the abdomen or pelvis. RADIATION DOSE DELIVERED: 421.15mGy.cm Total DLP DATA REPOSITORY: All CT scans at this facility are submitted to the National Radiology Data Registry (NRDR) Dose Index Registry (DIR) with the [employer] (ACR). RADIATION OPTIMIZATION: All CT scans at this facility use at least one of these dose optimization te chniques: automated exposure control; mA and/or kV adjustment per patient size (includes targeted exa ms where dose is matched to clinical indication); or iterative reconstruction.
== END 2025-01-15 01:36 ==
LOC: DI 01:16
PROVIDERS: PCP Nurse Practitioner Family; Visit Provider Physician Assistant
DX: R10.9 Unspecified abdominal pain (principal)
CPT/HCPCS: 74177; J3490

== ENCOUNTER 2025-05-18 07:46 | Outpatient (CLI) | payer MEDICARE, BC, SELFPAY ==
--- NOTE | 2025-05-18 07:45 | RT.EKG_ITS ---
APPROVED REPORT Exam: Resting ECG Reason for Exam: SOB Patient Location: O HR:57 bpm ECG Measurements Heart Rate 57 AXIS WY 183 P -44 QRSd 93 QRS -21 QT 414 T 9 QTc 403 Conclusion Sinus rhythm...normal P axis, V-rate 50- 99 Low voltage, precordial leads...precordial leads <1.0mV LVH by voltage...R >1.10 in aVL Borderline T abnormalities, anterior leads...T flat or neg, V2-V4
== END 2025-05-18 07:47 | disposition home or self-care (01) ==
LOC: DI.CARD 07:46
PROVIDERS: PCP Nurse Practitioner Family; Visit Provider Registered Nurse
DX: R06.02 Shortness of breath (principal)
CPT/HCPCS: 93010

== ENCOUNTER → 2025-05-18 09:19 | Outpatient (BNVA) | payer MEDICARE, BC, SELFPAY | PROVIDERS: PCP Nurse Practitioner Family; Referring Provider Nurse Practitioner Family; Visit Provider Registered Nurse | DX: I34.0 Nonrheumatic mitral (valve) insufficiency (principal); I10 Essential (primary) hypertension; R06.02 Shortness of breath; E11.59 Type 2 diabetes mellitus with other circulatory complications; Z82.49 Family history of ischemic heart disease and other diseases of the circulatory system; Z79.02 Long term (current) use of antithrombotics/antiplatelets | CPT/HCPCS: 99214; 93005 ==

== ENCOUNTER 2025-05-28 19:45 | Emergency (ER) | payer MEDICARE, BC, SELFPAY ==
[2025-05-28] VITALS (15 sets, daily range): BP systolic 138–187; BP diastolic 41–70; PULSE 57–77; RESP 15–21; O2SAT 95–97
--- NOTE | 2025-05-28 20:00 | DI.CT_ITS ---
Exam(s) CT BRAIN NECK CTA EXAM: CT BRAIN NECK CTA CLINICAL HISTORY: right facial numbness. TECHNIQUE: Imaging Protocol: Axial CT angiography was performed with multi- slice acquisition and multi-planar and/or 3D reconstructions. CONTRAST MATERIAL: Intravenous: Omnipaque 350 Contrast volume:structured data in ml COMPARISON: CT CT HEAD WO from 08/07/2023 FINDINGS: CTA Neck W: Aortic arch anatomy: There is independent origin of the left vertebral artery off of the aortic arch. The right vertebral artery originates in conventional fashion off of the right subclavian artery. There is no significant stenosis at the origin of the great vessels off the aortic arch. Anterior circulation: Both common carotid arteries ascend with normal luminal diameters. At the level the carotid bulbs and proximal internal carotid arteries there is some mild partially calcified plaque without evidence of hemodynamically significant stenosis nor dissection. The internal carotid arteries are patent bilaterally in the upper neck and skull base-carotid canals. Posterior circulation: There is no significant stenosis at the origin of the vertebral arteries. The left vertebral artery is dominant. There is no evidence of vertebral artery thrombosis nor dissection. At the skull base both vertebral arteries contribute to the formation of the basilar artery. CTA Brain W: Anterior circulation: Both internal carotid arteries are patent in the skull base-carotid canals as well as within the cavernous sinuses. There is no hemodynamically significant stenosis in either internal carotid artery at this level. Supraclinoid aspects of both internal carotid arteries are patent. The right A1 segment is dominant. The left A1 segment is atretic. Both anterior cerebral arteries are patent. There is no aneurysm at the level the anterior communicating artery. Both middle cerebral arteries are patent with no evidence of significant stenosis nor intraluminal thrombus. There also no aneurysms of these vessels. Posterior circulation: The basilar artery ascends in the midline with no significant stenosis. Distally gives off superior cerebellar arteries and above this level terminates as patent right posterior cerebral artery. The left posterior cerebral artery is predominantly fed by a posterior communicating artery on the left side of the [id number]. The left P1 segment is atretic. There is no evidence of aneurysm at the tip of the basilar artery nor elsewhere in the [id number]-cr-Ridebb. CT BRAIN: There is no evidence of intracranial hemorrhage, mass effect, or shift of midline structures. There are no extra-axial fluid collections. Ventricles are not enlarged or shifted. There are no ring enhancing lesions in the brain and no abnormal meningeal enhancement. IMPRESSION: 1. Mild calcified plaque bilaterally at the carotid bifurcations/proximal ICAs but no hemodynamically significant stenosis. No dissection. 2. Patent vertebral arteries. The left vertebral artery is patent. It is also noted to originate as an independent vessel off the aortic arch instead of arising in conventional fashion off the left subclavian artery. The right vertebral artery originates in conventional fashion off the right subclavian artery. The left vertebral artery is dominant. 3. Patent intracranial arteries. The 4. Right A1 segment is dominant. The left A1 segment is atretic probably on developmental basis. The left posterior cerebral artery is predominantly fed by a posterior communicating artery on the left side of the [id number]-[id number]. The right posterior cerebral artery arises in conventional fashion at the tip of the basilar artery. 5. No evidence of aneurysms nor vascular malformations. 6. No acute intracranial findings. Preliminary virtual Radiology report was reviewed. RADIATION DOSE DELIVERED: 2,118.03mGy.cm Total DLP DATA REPOSITORY: All CT scans at this facility are submitted to the National Radiology Data Registry (NRDR) Dose Index Registry (DIR) with the [employer] (ACR). RADIATION OPTIMIZATION: All CT scans at this facility use at least one of these dose optimization techniques: automated exposure control; mA and/or kV adjustment per patient size (includes targeted exams where dose is matched to clinical indication); or iterative reconstruction.
--- NOTE | 2025-05-28 20:11 | W.ED.GENAD ---
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[employer] Misc See Rx Instructions .Route Qty: 1 3RF Rx Instructions: Continuous glucose monitor (DME) Dexcom G7 Sensor Device See Rx Instructions .Route Qty: 3 3RF Rx Instructions: Continuous glucose monitor clotrimazole 1 % cream 1 applic topical BID Qty: 45 1RF Rx Instructions: Apply to affected areas twice a day for 2-4wks or until resolution Caltrate 600-D Plus Minerals 600 mg calcium- 800 unit-50 mg tablet 1 tab PO DAILY triamcinolone acetonide 0.1 % cream 1 applic topical DAILY Qty: 15 0RF (DME) lancets Misc See Rx Instructions .ROUTE .MEDSUPPLY Qty: 200 4RF Rx Instructions: Check blood sugar twice a day loratadine [Claritin] 10 mg tablet 10 mg PO DAILY PRN (Reason: allergy symptoms) Qty: 90 3RF vitamin B complex Capsule 1 cap PO .3x/week ammonium lactate 12 % cream 1 applic TP BID PRN (Reason: dry skin) Qty: 385 3RF (DME) OneTouch Ultra Test Strip 1 ea Miscellaneous DAILY Qty: 200 3RF Rx Instructions: Check blood sugar twice a day cetirizine 10 mg tablet 10 mg PO DAILY Qty: 90 3RF chlorthalidone 25 mg tablet 25 mg PO DAILY Qty: 90 3RF citalopram 20 mg tablet 20 mg PO DAILY Qty: 90 3RF simvastatin 20 mg tablet 20 mg PO QPM Qty: 90 3RF tirzepatide 10 mg/0.5 mL pen injector 10 mg subcut QWEEK Qty: 6 3RF Metamucil (with sugar) 3.4 gram/12 gram powder 1 tbsp PO DAILY (DME) lancets [OneTouch Delica Plus Lancet] 33 gauge misc See Rx Instructions .Route Qty: 200 3RF Rx Instructions: Check blood sugars twice daily levothyroxine 100 mcg tablet 100 mcg PO DAILY Qty: 90 3RF epinephrine [EpiPen 2-Renard] 0.3 mg/0.3 mL auto-injector 0.3 mg IM ONCE Qty: 1 0RF Rx Instructions: as a single dose gabapentin 100 mg capsule 100 mg PO BID Qty: 180 0RF aspirin [Aspir-81] 81 MG tablet,delayed release (DR/EC) 81 mg PO DAILY Discharge Instructions Instructions: Paresthesia (DC) Additional Instructions: Please follow-up with primary care physician. Please return to the emergency department for any worsening symptoms HPI General Date/Time Provider Initiated Documentation: 05/28/25 20:07. HPI Narrative: 74-year-old female history of diabetes presents with right facial sensory change that began around 615 described as swelling/numbness sensation to her upper lip both right and left side of lip with sensation radiating into cheek and eye, no headache no nausea no vomiting no limb weakness or numbness no change in speech no ataxia, patient denies history of stroke. Patient has known allergy to blueberries. Did not consume blueberries. No recent new environmental stimulus per patient. Patient denies trouble swallowing or speaking, denies trouble breathing denies nausea or vomiting denies presyncope. Denies abdominal pain or other symptoms Related Data Home Medications ?Medication ?Instructions ?Recorded ?Confirmed aspirin 81 mg tablet,delayed 81 mg PO DAILY 03/02/14 05/28/25 release (Aspir-) calcium 600 mg-D3 800 unit-mag11 1 tab PO DAILY 07/09/19 05/28/25 50 tt-[id number]-pamela-s.borat tablet (Caltrate 600-D Plus Minerals) blood-glucose meter (A & A Custom Cornholeuch #1 ea 11/27/19 05/28/25 UltraMini kit) vitamin B complex 1 cap PO .3x/week 01/21/21 05/28/25 ammonium lactate 12 % topical cream 1 applic topical BID PRN dry skin 11/05/23 05/28/25 #385 grams blood sugar diagnostic (ngmocoTouch #200 ea 12/20/23 05/28/25 Ultra Test strips) cetirizine 10 mg tablet 10 mg PO DAILY #90 tabs 02/11/24 05/28/25 clotrimazole 1 % topical cream 1 applic topical BID #45 grams 04/11/24 05/28/25 blood-glucose sensor (Dexcom G7 #3 ea 05/12/24 05/28/25 Sensor device) blood-glucose,power distribution engineer,cont #1 ea 05/12/24 05/28/25 (Dexcom G7 Supervisor [employer]) chlorthalidone 25 mg tablet 25 mg PO DAILY #90 tabs 07/02/24 05/28/25 citalopram 20 mg tablet 20 mg PO DAILY #90 tabs 07/02/24 05/28/25 simvastatin 20 mg tablet 20 mg PO QPM #90 tabs 07/02/24 05/28/25 triamcinolone acetonide 0.1 % 1 applic topical DAILY #15 grams 08/04/24 05/28/25 topical cream tirzepatide 10 mg/0.5 mL 10 mg (0.5 mL) subcut QWEEK #6 mL 09/01/24 05/28/25 subcutaneous pen injector psyllium husk (with sugar) 3.4 1 tbsp PO DAILY 11/27/24 05/28/25 gram/12 gram oral powder (Metamucil (with sugar)) lancets #200 ea 12/04/24 05/28/25 loratadine 10 mg tablet (Claritin) 10 mg PO DAILY PRN allergy 12/04/24 05/28/25 symptoms #90 tabs lancets 33 gauge (OneTouch Delica #200 ea 12/10/24 05/28/25 Plus Lancet) levothyroxine 100 mcg tablet 100 mcg PO DAILY #90 tabs 01/09/25 05/28/25 epinephrine 0.3 mg/0.3 mL 0.3 mg (0.3 mL) IM ONCE #1 ea 01/12/25 05/28/25 injection, auto-injector (EpiPen 2-Renard) gabapentin 100 mg capsule 100 mg PO BID #180 caps 03/03/25 05/28/25 Previous Rx's ?Medication ?Instructions ?Recorded blood-glucose meter (OneTouch #1 ea 11/27/19 UltraMini kit) ammonium lactate 12 % topical cream 1 applic topical BID PRN dry skin 11/05/23 #385 grams blood sugar diagnostic (OneTouch #200 ea 12/20/23 Ultra Test strips) cetirizine 10 mg tablet 10 mg PO DAILY #90 tabs 02/11/24 clotrimazole 1 % topical cream 1 applic topical BID #45 grams 04/11/24 blood-glucose sensor (Dexcom G7 #3 ea 05/12/24 Sensor device) blood-glucose,power distribution engineer,cont #1 ea 05/12/24 (Dexcom G7 Supervisor [employer]) chlorthalidone 25 mg tablet 25 mg PO DAILY #90 tabs 07/02/24 citalopram 20 mg tablet 20 mg PO DAILY #90 tabs 07/02/24 simvastatin 20 mg tablet 20 mg PO QPM #90 tabs 07/02/24 triamcinolone acetonide 0.1 % 1 applic topical DAILY #15 grams 08/04/24 topical cream tirzepatide 10 mg/0.5 mL 10 mg (0.5 mL) subcut QWEEK #6 mL 09/01/24 subcutaneous pen injector lancets #200 ea 12/04/24 loratadine 10 mg tablet (Claritin) 10 mg PO DAILY PRN allergy 12/04/24 symptoms #90 tabs lancets 33 gauge (OneTouch Delica #200 ea 12/10/24 Plus Lancet) levothyroxine 100 mcg tablet 100 mcg PO DAILY #90 tabs 01/09/25 epinephrine 0.3 mg/0.3 mL 0.3 mg (0.3 mL) IM ONCE #1 ea 01/12/25 injection, auto-injector (EpiPen 2-Renard) gabapentin 100 mg capsule 100 mg PO BID #180 caps 03/03/25 Allergies Allergy/AdvReac Type Severity Reaction Status Date / Time amoxicillin Allergy Severe Hives Verified 05/18/25 09:36 blueberry Allergy Intermediate SWELLING Verified 05/18/25 09:36 COVID-19 vaccine, mRNA, Allergy angioedema Verified 05/18/25 09:36 [id number], (COVID-19 vaccine, mRNA-1273, LNP-S) semaglutide AdvReac Intermediate Thoracic Verified 05/18/25 09:36 back pain General Stated Complaint: Allergic SIRIA: 3 Exam Narrative Exam Narrative: General: alert, no acute distress HEENT: normocephalic, atraumatic, neck supple, pupils equal round reactive to light, moist mucous membranes, tolerating secretions, normal voice, no rhinorrhea or otorrhea; normal oropharynx tolerating secretions normal voice, no edema to lips Respiratory: normal respiratory effort, lungs clear bilaterally, no wheezes rales or rhonchi Cardiac: regular rate and rhythm, no murmurs rubs or gallops; equal pulses bilaterally, warm well perfused Abdominal: soft, nontender, nondistended; no organomegaly or palpable masses MSK: normal range of motion of extremities, warm, well perfused Skin: warm, dry, no rashes or lesions Neuro: AAOx3, CN II-XII intact, 5/5 strength bilateral upper and lower extremities, normal speech, no ataxia Psych: normal mood, normal affect, calm, cooperative Course Vital Signs Vital signs: Vital Signs Pulse 66 05/28/25 19:49 Respiratory Rate 20 05/28/25 19:49 Blood Pressure 187/70 H 05/28/25 19:49 Pulse Oximetry 96 05/28/25 19:49 Pulse 66 05/28/25 19:49 Respiratory Rate 20 05/28/25 19:49 Respiratory Effort Normal 05/28/25 20:10 Respiratory Pattern Normal 05/28/25 20:10 Blood Pressure 187/70 H 05/28/25 19:49 Blood Pressure Position Sitting 05/28/25 19:49 Pulse Oximetry 96 05/28/25 19:49 Oxygen Delivery Method Room Air 05/28/25 19:49 Oxygen Flow Rate 0 05/28/25 19:49 Medical Decision Making 74-year-old female history of diabetes presents with sensation of swelling/numbness to upper lip associated with similar sensation in her right cheek extending up near her eye, no signs of allergic reaction on examination as patient has no erythema induration or edema, patient has no wheezing or stridor, patient has normal oropharynx, cranial nerves intact 5-5 strength upper lower extremities bilaterally sensation intact, no ataxia, normal speech, consider mild allergic reaction versus CVA versus early Malloy's palsy versus less likely electrolyte derangement less likely infection, will trial prednisone and Benadryl for symptomatic control however given age and risk factors must consider subtle CVA will obtain stat CT CTA head and neck. Reassessment of symptomatology to determine disposition. 21: 36 rest comfortably feeling better after medication symptomatology in cheek and near her eye has resolved still with some residual sensation on lip however denies secretions normal voice no stridor no respiratory symptoms blood pressure improved. CT CTA head and neck read as unremarkable. Patient has no other symptomatology that suggest CVA. Consider resolving allergic reaction. Patient feels comfortable going home. Given home care instructions and strict return precautions Quality:SDOH Health Related Social Needs: Health related social needs house/econ circumstance PFSH All Active Problems (Updated 05/28/25 @ 21:37 by Dayo Woo MD) Paresthesia (Acute) CKD (chronic kidney disease) stage 3, GFR 30-59 ml/min (Chronic) Type 2 diabetes mellitus with diabetic retinopathy (Chronic) Mitral regurgitation (Chronic) Mild per 2022 echo, sees [facility] cardiology Essential hypertension (Chronic) Hyperlipidemia (Chronic) Hypothyroidism (Chronic) Diabetic neuropathy (Chronic) Metabolic dysfunction-associated steatotic liver disease (MASLD) (Chronic) Depressive disorder (Chronic) Insomnia (Chronic) Hearing loss of right ear (Chronic) Dizziness (Acute) Prolapse of female pelvic organs (Chronic) Cystocele Vitiligo (Chronic) Incontinence in female (Chronic) Obesity (Chronic) Sigmoid diverticulosis (Chronic) Diverticulitis 2018 Medical History Angioedema After first dose of Moderna vaccine 12/2020 Osteopenia Resolved on 2021 dexa Surgical History History of colonoscopy History of carpal tunnel surgery of left wrist (02/11/19) S/P trigger finger release (12/31/18) Of right middle and index finger 12/31/18 Of left middle and index finger 02/11/19 History of carpal tunnel surgery of right wrist (12/31/18) Family History Mother Paroxysmal A-fib Hyperlipidemia Hypertension Breast cancer Father , at 75 Parkinson disease Type 2 diabetes mellitus Sister , of [place] at 63 Type 2 diabetes mellitus Kidney disease Heart disease Myocardial infarction Brother Heart disease Hyperlipidemia Type 2 diabetes mellitus Myocardial infarction Brother , at 12 d/t cardiomyopathy Heart disease Cardiomyopathy Daughter Hypertension Daughter No problems noted. Maternal Grandfather No problems noted. Maternal Grandmother , at 57 Heart disease Paternal Grandfather No problems noted. Paternal Grandmother No problems noted. Social History (Updated 12/04/24 @ 14:53 by Laxmi Devine) Smoking/Tobacco Use Status: Never Second Hand Exposure: Yes Smoking risk assessment performed?: Yes Alcohol Intake: current Alcohol Intake frequency: 0-2 drinks per day Alcohol type: wine Drug use: Never Substance use type: does not use Adopted: No Caregiver/Support person: No (occ to spouse & daily to mother) Foster care: No Household members: spouse Housing: house Number of Children: 2 number of grandchildren: 2 Communication Needs: Corrective Lenses Education Level: high school Do you need help understanding health information?: Rarely current occupation: Retired Pets and animals: Yes Pets and animals: dog(s) Sexually active: No Do you think of yourself as: straight/heterosexual Current gender identity: female What is your relationship status?: How often do you talk on the phone with friends or family?: three or more times per week How often do you get together with friends or relatives?: three or more times per week How often do you attend nondenominational or catholic services?: 4 or more times per year Do you belong to any clubs or organized social groups?: no Panel score (0-1 are the most socially isolated patients): 3 Duration: < 15 minutes/day Frequency: daily Holly/Denominational: Lutheran Special holly needs: No Agree to transfusion: Yes Seatbelt use: always Helmet use: Yes Drive intox or ride w/intox sulky driver: Yes Drive intox or w/intox sulky driver: rarely Working smoke detector in home: No Carbon monox detector in home: No Do you feel safe at home: Yes Do you feel safe in your relationship?: Yes Female Reproductive History Menstrual Menopause type: natural History History 2 Para 2 Hx # Term Pregnancies 2 Multiple births 0 Hx # Pregnancies 0 Ectopic pregnancies 0 AB induced 0 Hx Number of Living Children 2 AB spontaneous 0
[2025-05-28] MEDS: predniSONE 20 MG TAB PO (20:13)
[2025-05-28] MEDS: diphenhydrAMINE 25 MG CAP PO (20:13)
--- NOTE | 2025-05-28 20:15 | RT.EKG_ITS ---
APPROVED REPORT Exam: Resting ECG Reason for Exam: chest pain Patient Location: E HR:61 bpm ECG Measurements Heart Rate 61 AXIS ND 177 P 44 QRSd 90 QRS -20 QT 444 T 48 QTc 447 Conclusion Sinus rhythm...normal P axis, V-rate 60- 99 Sinus rhythm left axis normal intervals no acute ischemic changes
[2025-05-28 20:29] LABS: Abs Immature Grans 0.02 10^3/uL (0.0-0.06); HCT 33.2 % (36.0-46.0); HGB 11.0 g/dL (11.2-15.7); Immature Grans % 0.3 %; MCH 29.6 pg (27.0-33.0); MCHC 33.1 % (32.0-36.0); MCV 89 fL (80-95); MPV 9.1 fL (8.0-11.0); Platelet Count 162 10^3/uL (130-400); RBC 3.72 10^6/uL (3.93-5.22); RDW 12.9 % (11.7-14.6); RDW-SD 41.8 fL; WBC 6.34 10^3/uL (4.4-10.8)
[2025-05-28] MEDS: Omnipaque 350 MG/ML 100 ML BTL 70 ML IJ (20:35)
[2025-05-28] MEDS: Normal Saline - Diluent 50 ML VIAL IJ (20:36)
[2025-05-28 20:42] LABS: INR 1.0 (0.9-1.1); PTT Activated 24.0 sec (20.6-30.2); Prothrombin Time 10.3 sec (9.1-11.1)
[2025-05-28 20:43] LABS: ALT 33 U/L (14-59); AST 29 U/L (15-37); Albumin 3.5 g/dL (3.4-5.0); Alkaline Phosphatase 87 U/L (46-116); Anion Gap 7.3 mmol/L (3-11); BUN 25 mg/dL (7-18); Bilirubin, Total 0.2 mg/dL (0.2-1.0); CO2 32.7 mmol/L (21.0-32.0); Calcium 8.8 mg/dL (8.5-10.1); Chloride 102 mmol/L (98-107); Estimated GFR 43.42 (mL/min/1.73m2); Glucose 157 mg/dL (74-106); Potassium 3.6 mmol/L (3.5-5.1); Sodium 142 mmol/L (136-145); Total Protein 7.3 g/dL (6.4-8.2)
--- NOTE | 2025-05-28 21:19 | DI.VRAD_ITS ---
PROCEDURE INFORMATION: Exam: CTA Head Without And With Contrast, Arteriography Exam date and time: 05/28/2025 8:32 PM Age: 74 years old Clinical indication: Other: Right facial numbness TECHNIQUE: Imaging protocol: Computed tomographic angiography of the head without and with contrast. Exam focused on the arteries. 3D rendering (Not supervised by radiologist): MIP and/or 3D reconstructed images were created by the technologist. Contrast material: OMNIPAQUE 350; Contrast volume: 70 ml; Contrast route: INTRAVENOUS (IV); COMPARISON: MR IAC BRAIN WO/W 10/16/2023 10:16 AM FINDINGS: ANTERIOR CIRCULATION: Right internal carotid artery: Trace atheromatous calcification is present within the cavernous portions of the right internal carotid arteries. Less than 50% luminal stenosis. Right middle cerebral artery: No occlusion or significant stenosis. No aneurysm. Right anterior cerebral artery: No occlusion or significant stenosis. No aneurysm. Left internal carotid artery: Trace atheromatous calcification is present within the cavernous portions of the left internal carotid arteries. Less than 50% luminal stenosis. Left middle cerebral artery: No occlusion or significant stenosis. No aneurysm. Left anterior cerebral artery: No occlusion or significant stenosis. No aneurysm. POSTERIOR CIRCULATION: Right vertebral artery: No occlusion or significant stenosis. No aneurysm. Left vertebral artery: No occlusion or significant stenosis. No aneurysm. Basilar artery: No occlusion or significant stenosis. No aneurysm. Right posterior cerebral artery: No occlusion or significant stenosis. No aneurysm. Left posterior cerebral artery: No occlusion or significant stenosis. No aneurysm. HEAD: Brain: No acute intracranial hemorrhage or mass lesions. No midline shift. Normal arias-white differentiation. Cerebral ventricles: Normal. No ventriculomegaly. Bones: Unremarkable. No acute fracture. Paranasal sinuses: Visualized sinuses are normal. No fluid levels. Mastoid air cells: Visualized mastoids are normal. No mastoid effusion. Soft tissues: Unremarkable. IMPRESSION: 1. No stenosis, occlusion, or aneurysm. 2. No acute intracranial findings. PROCEDURE INFORMATION: Exam: CTA Neck Without And With Contrast Exam date and time: 05/28/2025 8:32 PM Age: 74 years old Clinical indication: Other: Right facial numbness TECHNIQUE: Imaging protocol: Computed tomographic angiography of the neck without and with contrast. Exam focused on the cervical segments of the vasculature. 3D rendering (Not supervised by radiologist): MIP and/or 3D reconstructed images were created by the technologist. Contrast material: OMNIPAQUE 350; Contrast volume: 70 ml; Contrast route: INTRAVENOUS (IV); COMPARISON: MR CERVICAL SPINE WO 10/16/2023 9:56 AM FINDINGS: Right common carotid artery: No stenosis. No dissection or occlusion. Right internal carotid artery: Mild atheromatous calcifications are present at the right carotid bulb. Right external carotid artery: No occlusion or stenosis of the origin. Left common carotid artery: No stenosis. No dissection or occlusion. Left internal carotid artery: Mild atheromatous calcifications are present at the left carotid bulb. Left external carotid artery: No occlusion or stenosis of the origin. Right vertebral artery: No stenosis. No dissection or occlusion. Left vertebral artery: No stenosis. No dissection or occlusion. Aorta: Atheromatous calcifications are present within the visualized thoracic aorta. Soft tissues: Normal. No significant soft tissue swelling. Bones/joints: Mild degenerative changes are present within the cervical spine including intervertebral disc space narrowing, endplate sclerosis, and osteophytosis. IMPRESSION: No stenosis, occlusion, or aneurysm. REFERENCES: NASCET CRITERIA. The degree of stenosis in the cervical segment of the internal carotid artery is based on NASCET criteria. Normal is no stenosis. Mild is less than 50% stenosis. Moderate is 50-69% stenosis. Severe is 70% to 99% stenosis. Total occlusion is no detectable patent lumen. Dictated and Authenticated by: Alexandria Bryson MD. Orderin Amna Oshea MD
== END 2025-05-28 21:39 | disposition home or self-care (01) ==
PROVIDERS: Emergency Provider Emergency Medicine; PCP Nurse Practitioner Family
DX: R20.0 Anesthesia of skin (principal); E11.22 Type 2 diabetes mellitus with diabetic chronic kidney disease; I12.9 Hypertensive chronic kidney disease with stage 1 through stage 4 chronic kidney disease, or unspecified chronic kidney disease; N18.30 Chronic kidney disease, stage 3 unspecified; E78.5 Hyperlipidemia, unspecified; E03.9 Hypothyroidism, unspecified; Z79.82 Long term (current) use of aspirin; Z79.85 Long-term (current) use of injectable non-insulin antidiabetic drugs; Z96.41 Presence of insulin pump (external) (internal)
CPT/HCPCS: 36415; 70496; 70498; 80053; 93005; 99285; 85025; 85610; 85730; 93010; 99284; J3490; J7512

== ENCOUNTER 2025-06-11 09:49 | Outpatient (CLI) | payer MEDICARE, BC, SELFPAY ==
[2025-06-11 12:21] LABS: Abs Immature Grans 0.03 10^3/uL (0.0-0.06); HCT 34.8 % (36.0-46.0); HGB 11.1 g/dL (11.2-15.7); Immature Grans % 0.6 %; MCH 28.8 pg (27.0-33.0); MCHC 31.9 % (32.0-36.0); MCV 90 fL (80-95); MPV 9.8 fL (8.0-11.0); Platelet Count 193 10^3/uL (130-400); RBC 3.86 10^6/uL (3.93-5.22); RDW 13.3 % (11.7-14.6); RDW-SD 43.8 fL; WBC 4.78 10^3/uL (4.4-10.8)
[2025-06-12 12:16] LABS: Lyme Ab w Rflx to Lyme Confirm Negative (Negative)
[2025-06-14 21:31] LABS: B. miyamotoi PCR Negative (Negative); Babesia divergens/MO-1 Negative (Negative); Ehrlichia muris eauclairensis Negative (Negative)
== END 2025-06-11 09:50 | disposition home or self-care (01) ==
LOC: LOS 09:49
PROVIDERS: PCP Nurse Practitioner Family; Visit Provider Physician Assistant
DX: R21 Rash and other nonspecific skin eruption (principal); M79.601 Pain in right arm; M79.602 Pain in left arm
CPT/HCPCS: 36415; 87798; 85025; 86618